=== PATIENT | female | born 1975 | race Caucasian/White ===

== ENCOUNTER → 2017-07-10 | Outpatient (CLI) | payer OTHER ==
[2017-07-10 14:16] LABS: ANION GAP 5 MEQ/L (8-16); BLOOD UREA NITROGEN 14 MG/DL (7-18); CALCIUM LEVEL 8.8 MG/DL (8.5-10.1); CARBON DIOXIDE LEVEL 28 MEQ/L (21-32); CHLORIDE LEVEL 107 MEQ/L (98-107); CHOLESTEROL LEVEL 196 MG/DL (<200); CREATININE FOR GFR 0.75 MG/DL (0.55-1.02); GLOMERULAR FILTRATION RATE > 60.0 (>58); GLUCOSE, FASTING 82 MG/DL (70-105); POTASSIUM SERUM 4.3 MEQ/L (3.5-5.1); SODIUM LEVEL 140 MEQ/L (136-145); TRIGLYCERIDES LEVEL 123 MG/DL (<150)
== END ==
LOC: M SMT 08:41
PROVIDERS: ATTEND Physician Assistant Medical
DX: I10 Essential (primary) hypertension (principal)

== ENCOUNTER → 2017-11-20 | Outpatient (REF) | payer OTHER ==
[2017-11-22 14:15] LABS: HPV HYBRID CAPTURE II Negative (Negative)
== END ==
LOC: M LAB REF 18:40
DX: Z01.419 Encounter for gynecological examination (general) (routine) without abnormal findings (principal); Z11.51 Encounter for screening for human papillomavirus (HPV)

== ENCOUNTER → 2017-12-05 | Outpatient (CLI) | payer OTHER | LOC: M RAD 08:52 | DX: Z12.31 Encounter for screening mammogram for malignant neoplasm of breast (principal) ==

== ENCOUNTER → 2018-06-25 | Outpatient (REF) | payer OTHER | LOC: M LAB REF 13:27 | DX: R30.0 Dysuria (principal) ==

== ENCOUNTER → 2018-07-25 | Outpatient (CLI) | payer OTHER ==
[2018-07-25 13:35] LABS: ANION GAP 8 MEQ/L (8-16); BLOOD UREA NITROGEN 13 MG/DL (7-18); CALCIUM LEVEL 8.9 MG/DL (8.5-10.1); CARBON DIOXIDE LEVEL 27 MEQ/L (21-32); CHLORIDE LEVEL 105 MEQ/L (98-107); CHOLESTEROL LEVEL 197 MG/DL (<200); CHOLESTEROL RISK RATIO 2.736 (<5); CREATININE FOR GFR 0.75 MG/DL (0.55-1.30); GLOMERULAR FILTRATION RATE > 60.0 (>58); GLUCOSE, FASTING 79 MG/DL (70-100); HDL CHOLESTEROL 72 MG/DL (>40); LDL CHOLESTEROL 96 MG/DL (<100); NON-HDL-C 125 MG/DL; POTASSIUM SERUM 4.4 MEQ/L (3.5-5.1); SODIUM LEVEL 140 MEQ/L (136-145); TRIGLYCERIDES LEVEL 143 MG/DL (<150)
== END ==
LOC: M SMT 10:03
DX: I10 Essential (primary) hypertension (principal)
CPT/HCPCS: 80061

== ENCOUNTER → 2018-11-25 | Outpatient (REF) | payer OTHER | LOC: M LAB REF 17:09 | PROVIDERS: ATTEND Specialist | DX: Z12.4 Encounter for screening for malignant neoplasm of cervix (principal) ==

== ENCOUNTER → 2018-12-23 | Outpatient (CLI) | payer OTHER ==
--- NOTE | 2018-12-23 16:36 | REPMRS ---
Patient History The patient states she had a clinical breast exam in November 2018. Family history of unknown cancer in mother, endometrial cancer in paternal aunt. Taking hormonal contraceptives for 22 years. 3D TOMOSYNTHESIS WAS PERFORMED. Digital Mammo Screening Bilat: December 23, 2018 - Exam #: [id number] Bilateral CC and MLO view(s) were taken. Technologist: Marylu Tenorio, Technologist Prior study comparison: December 05, 2017, bilateral digital mammo screening bilat performed at [facility]. FINDINGS: There are scattered fibroglandular densities. There has been no change in the appearance of the mammogram from the prior studies. There is a mild amount of residual fibroglandular tissue which is fairly symmetric. There is no interval development of dominant mass, architectural distortion, or clustered microcalcification suggestive of malignancy. Assessment: BI-RADS/ACR category 1 mammogram. Negative Mammogram. Recommendation Routine screening mammogram in 1 year (for women over age 40). This mammogram was interpreted with the aid of an FDA-approved computer-aided dectection system. Electronically Signed By: Mike Perez MD 12/23/18 7502
== END ==
LOC: M RAD 11:50
PROVIDERS: ATTEND Specialist
DX: Z12.31 Encounter for screening mammogram for malignant neoplasm of breast (principal); Z80.49 Family history of malignant neoplasm of other genital organs

== ENCOUNTER → 2019-03-13 | Outpatient (REF) | payer OTHER | LOC: M LAB REF 11:17 | PROVIDERS: ATTEND Physician Assistant | DX: N39.0 Urinary tract infection, site not specified (principal) ==

== ENCOUNTER → 2019-07-29 | Outpatient (CLI) | payer OTHER ==
[2019-07-29 13:16] LABS: BASO # 0.1 10^3/uL (0.0-0.2); BASO % 0.7 % (0.0-1.0); EOS # 0.2 10^3/uL (0.0-0.5); EOS % 2.3 % (0.0-3.0); HEMATOCRIT 45.2 % (36.0-47.0); HEMOGLOBIN 14.1 g/dl (12.0-15.5); LYMPH % 38.8 % (24.0-44.0); MEAN CORPUSCULAR HEMOGLOBIN 30.3 pg (27.0-33.0); MEAN CORPUSCULAR HGB CONC 31.2 g/dl (32.0-36.5); MEAN CORPUSCULAR VOLUME 97.2 fl (80.0-96.0); MONO # 0.6 10^3/uL (0.0-0.8); MONO % 7.2 % (0.0-5.0); NEUTROPHILS # 3.9 10^3/uL (1.5-8.5); NEUTROPHILS % 50.9 % (36.0-66.0); PLATELET COUNT, AUTOMATED 289 10^3/uL (150-450); RED BLOOD COUNT 4.65 10^6/uL (4.00-5.40); WHITE BLOOD COUNT 7.7 10^3/uL (4.0-10.0)
[2019-07-29 14:23] LABS: ALBUMIN 3.2 GM/DL (3.2-5.2); ALT/SGPT 28 U/L (12-78); BILIRUBIN,TOTAL 0.5 MG/DL (0.2-1.0); BLOOD UREA NITROGEN 12 MG/DL (7-18); CARBON DIOXIDE LEVEL 29 MEQ/L (21-32); CHLORIDE LEVEL 108 MEQ/L (98-107); CHOLESTEROL LEVEL 177 MG/DL (<200); CHOLESTEROL RISK RATIO 2.901 (<5); CREATININE FOR GFR 0.79 MG/DL (0.55-1.30); GLOMERULAR FILTRATION RATE > 60.0 (>58); GLUCOSE, FASTING 85 MG/DL (70-100); HDL CHOLESTEROL 61 MG/DL (>40); LDL CHOLESTEROL 84 MG/DL (<100); NON-HDL-C 116 MG/DL; POTASSIUM SERUM 4.5 MEQ/L (3.5-5.1); SODIUM LEVEL 141 MEQ/L (136-145); TOTAL 25(OH) VITAMIN D 37.8 NG/ML (30.0-100.0); TOTAL PROTEIN 6.6 GM/DL (6.4-8.2); TRIGLYCERIDES LEVEL 160 MG/DL (<150)
== END ==
LOC: M PLALAB 09:08
PROVIDERS: ATTEND Family Medicine
DX: Z00.00 Encounter for general adult medical examination without abnormal findings (principal); E55.9 Vitamin D deficiency, unspecified

== ENCOUNTER → 2020-01-13 | Outpatient (REF) | payer OTHER | LOC: M SFHCWAGY 17:07 | PROVIDERS: ATTEND Specialist | DX: Z01.419 Encounter for gynecological examination (general) (routine) without abnormal findings (principal); Z12.4 Encounter for screening for malignant neoplasm of cervix ==

== ENCOUNTER → 2020-01-15 | Outpatient (CLI) | payer OTHER ==
--- NOTE | 2020-01-15 08:31 | REPMRS ---
Patient History The patient states she had a clinical breast exam in December 2019. Patient is nulliparous. Family history of unknown cancer in mother, endometrial cancer in paternal aunt. Taking hormonal contraceptives for 22 years. Digital Woman Screen Mammo: January 15, 2020 - Exam #: [id number] Bilateral CC and MLO view(s) were taken. Technologist: Anel Gonzalez, Technologist Prior study comparison: December 23, 2018, bilateral digital mammo screening bilat, performed at [facility]. December 05, 2017, bilateral digital mammo screening bilat, performed at [facility]. FINDINGS: There are scattered fibroglandular densities. The Volpara volumetric breast density category is:B. There has been no change in the appearance of the mammogram from the prior studies. There is a mild amount of scattered fibroglandular density which is fairly symmetric. There is no interval development of dominant mass, architectural distortion, or grouped microcalcification suggestive of malignancy. 3-D tomosynthesis shows no additional findings. Assessment: BI-RADS/ACR category 1 mammogram. Negative Mammogram. Recommendation Routine screening mammogram of both breasts in 1 year (for women over age 40). This patient's Lifetime Breast Cancer Risk is estimated at 14.2 %. This mammogram was interpreted with the aid of an FDA-approved computer-aided dectection system. Electronically Signed By: Gil Conley MD 01/15/20 0831
== END ==
LOC: M WHC 07:51
PROVIDERS: ATTEND Specialist
DX: Z12.31 Encounter for screening mammogram for malignant neoplasm of breast (principal)

== ENCOUNTER → 2020-07-12 | Outpatient (CLI) | payer OTHER ==
[2020-07-12 17:51] LABS: BASO # 0.1 10^3/uL (0.0-0.2); BASO % 0.7 % (0.0-1.0); EOS # 0.2 10^3/uL (0.0-0.5); EOS % 1.8 % (0.0-3.0); HEMATOCRIT 41.6 % (36.0-47.0); HEMOGLOBIN 13.3 g/dl (12.0-15.5); LYMPH % 34.3 % (24.0-44.0); MEAN CORPUSCULAR VOLUME 93.7 fl (80.0-96.0); MONO # 0.6 10^3/uL (0.0-0.8); MONO % 5.6 % (0.0-5.0); NEUTROPHILS # 6.6 10^3/uL (1.5-8.5); NEUTROPHILS % 57.4 % (36.0-66.0); PLATELET COUNT, AUTOMATED 341 10^3/uL (150-450); RED BLOOD COUNT 4.44 10^6/uL (4.00-5.40); WHITE BLOOD COUNT 11.5 10^3/uL (4.0-10.0)
[2020-07-12 18:15] LABS: ALBUMIN 3.4 GM/DL (3.2-5.2); ALT/SGPT 30 U/L (12-78); BILIRUBIN,TOTAL 0.7 MG/DL (0.2-1.0); BLOOD UREA NITROGEN 16 MG/DL (7-18); CALCIUM LEVEL 9.7 MG/DL (8.5-10.1); CARBON DIOXIDE LEVEL 30 MEQ/L (21-32); CHLORIDE LEVEL 103 MEQ/L (98-107); CHOLESTEROL LEVEL 216 MG/DL (<200); CHOLESTEROL RISK RATIO 3.428 (<5); CREATININE FOR GFR 0.85 MG/DL (0.55-1.30); GLOMERULAR FILTRATION RATE > 60.0 (>58); GLUCOSE, FASTING 77 MG/DL (70-100); HDL CHOLESTEROL 63 MG/DL (>40); LDL CHOLESTEROL 114 MG/DL (<100); NON-HDL-C 153 MG/DL; POTASSIUM SERUM 4.4 MEQ/L (3.5-5.1); SODIUM LEVEL 138 MEQ/L (136-145); TOTAL PROTEIN 6.6 GM/DL (6.4-8.2); TRIGLYCERIDES LEVEL 197 MG/DL (<150)
== END ==
LOC: M PLALAB 15:37
PROVIDERS: ATTEND Family Medicine
DX: Z00.00 Encounter for general adult medical examination without abnormal findings (principal)

== ENCOUNTER → 2020-08-17 | Outpatient (CLI) | payer OTHER ==
--- NOTE | 2020-08-17 15:40 | REP ---
INDICATION: N94.6 DYSMENORRHEA COMPARISON: None. TECHNIQUE: Transabdominal pelvic ultrasound followed by transvaginal examination for better evaluation of the endometrium and adnexa with color Doppler evaluation of the ovaries. FINDINGS: Bladder is unremarkable and measures 11.3 x 9.8 x 6.1 cm. Normal anteverted uterus measures 8.3 x 3.4 x 4.3 cm. The endometrial complex measures 5.0 mm thickness. No discrete uterine or endometrial abnormalities are appreciated. Bilateral ovaries are normal in appearance and vascularity without evidence for torsion. Right ovary measures 3.0 x 1.7 x 2.4 cm and includes multiple follicles; R I = 0.46. Left ovary measures 2.1 x 1.2 x 1.8 cm and includes multiple follicles; R I = 0.50. No pelvic fluid or adnexal mass lesion IMPRESSION: Normal pelvic ultrasound. <Electronically signed by Reinaldo Harper > 08/17/20 [id number]
== END ==
LOC: M WHC 13:49
PROVIDERS: ATTEND Family Medicine
DX: N94.6 Dysmenorrhea, unspecified (principal)

== ENCOUNTER → 2020-08-23 | Outpatient (REF) | payer OTHER | LOC: M LAB REF 17:10 | PROVIDERS: ATTEND Family Medicine | DX: N39.0 Urinary tract infection, site not specified (principal) ==

== ENCOUNTER → 2020-09-20 | Outpatient (CLI) | payer OTHER ==
--- NOTE | 2020-09-20 07:46 | REP ---
INDICATION: M54.9 BACK PAIN,N20.0 NEPHROLITHIASIS COMPARISON: None TECHNIQUE: Real time duarte scale and color Doppler evaluation of the kidneys using curved array transducer. FINDINGS: Bilateral kidneys are normal in contour, size, echogenicity, reniform shape and vascularity. No hydronephrosis, nephrolithiasis, cystic or renal mass lesion. Right kidney measures 11.1 x 5.6 x 4.8 cm (RI 0.57). Left kidney measures 12.2 x 6.8 x 4.8 cm (RI 0.62). The bladder is unremarkable. IMPRESSION: 1. Normal renal ultrasound. <Electronically signed by Reinaldo Harper > 09/20/20 0742
== END ==
LOC: M WHC 06:37
PROVIDERS: ATTEND Specialist
DX: M54.9 Dorsalgia, unspecified (principal); N20.0 Calculus of kidney

== ENCOUNTER 2020-10-01 08:45 | Emergency (ER) | payer OTHER ==
[~2020-10-01] VITALS: Ht 170.2 cm; Wt 104.5 kg
--- OUTSIDE RECORDS SUMMARY | 2020-10-01 08:59 | CCD ---
Author Author [facility] Organization [facility] Address Unknown Phone Unavailable Care Team Providers Care Public Health Advisor Name Role Phone Phil Alejandro Unavailable PROBLEMS Type Condition ICD9-CM Code [id number] Code Onset Dates Condition S tatus SNOMED Code Notes Problem Nephrolithiasis N20.0 Active 23587784 ALLERGIES No Known Allergies ENCOUNTERS from 1975 to 2020-09-08 Encounter Location Date Provider Diagnosis [facility] [address] [place] [address] Aug, Phil Alejandro Back pain M54.9 and Nephrolithiasis N20.0 IMMUNIZATIONS No Information SOCIAL HISTORY Tobacco Use: Social History Observation Description Date Details (start date - stop date) Never Smoker Sex Assigned At : Social History Observation Description Sex Assigned At Unknown Alcohol Screening: Question Answer Notes Did you have a drink containing alcohol in the past year? Ye s Points 1 Interpretation Negative How often did you have six or more drinks on one occas ion in the past year? Never (0 points) How many drinks did you have on a typica l day when you were drinking in the past year? 1 or 2 (0 points) How often did you have a drink containing alcohol in t he past year? Monthly or less (1 point) Tobacco Use: Question Answer Notes Are you a: never smoker REASON FOR REFERRAL No Information VITAL SIGNS Weight 230 lbs Aug, Height 67 in Aug, BMI 36.02 kg/m2 Aug, Blood pressure systolic 142 mm Hg Aug, Blood pressure diastolic 82 mm Hg Aug, MEDICATIONS Medication SIG (Take, Route, Frequency, Duration) Notes Start Da te End Date Status Flonase Allergy Relief 50 MCG/ACT 1 spray in each nostril Nasall y Once a day Active TriNessa (28) 0.18/0.215/0.25 MG-35 MCG 1 tablet Orall y Once a day for 84 day(s) December, Not-Taking Lisinopril 10 MG 1 tablet Orally Once a day Active Claritin 10 MG 1 tablet Orally Once a day Active TriNessa (28) 0.18/0.215/0.25 MG-35 MCG 1 tablet Orall y Once a day for 90 day(s) Sep, Active PROCEDURES No Information RESULTS No Results REASON FOR VISIT LOWER BACK PAIN W/ PERIOD MEDICAL (GENERAL) HISTORY Type Description Date Medical History hypertension Surgical History none Hospitalization History none Goals Section No Information Health Concerns No Information MEDICAL EQUIPMENT No Information MENTAL STATUS No Information FUNCTIONAL STATUS No Information ASSESSMENTS Encounter Date Diagnosis Assessment Notes Treatment Notes Treatm ent Clinical Notes Aug, Back pain (ICD-10 - M54.9) Aug, Nephrolithiasis (ICD-10 - N20.0) PLAN OF TREATMENT Treatment Notes Test Name Order Date RENAL ULTRASOUND 2020-09-08 Insurance Providers Payer Name Payer Address Payer Phone Insured Name Patient Relati onship to Insured Coverage Start Date Coverage End Date [facility] [address] [address] [facility] [id number] KRISTIE WOODALL self
--- OUTSIDE RECORDS SUMMARY | 2020-10-01 08:59 | CCD ---
Author Organization Unknown Address [address] [place] [address] Phone [phone] Care Team Providers Care Insurance Licensing Supervisor Name Role Phone Raymond Herzog Unavailable Unavailable Allergies None recorded. Medications Name Status Start Date Stop Date amoxicillin 875 mg-potassium clavulanate 125 mg tablet Active Not available cyclobenzaprine 10 mg tablet TAKE 1/2 1 TABLET BY MOUTH THREE TIMES A DAY NEEDED Active Not available Fluarix Quad (PF) 60 mcg (15 mcg x 4)/0.5 mL IM syring e Active Not available fluconazole 150 mg tablet TAKE ONE TABLET BY MOUTH ONCE WEEKLY Active No t available fluticasone propionate 50 mcg/actuation nasal spray,suspension A ctive Not available lisinopril 10 mg tablet Active Not avai lable naproxen 500 mg tablet TAKE ONE TABLET BY MOUTH TWICE A DAY NEEDED Active Not available Tri-Linyah (28) 0.18 mg(7)/0.215 mg(7)/0.25 mg(7)-35 mcg tablet Active Not available Problems None recorded. Procedures None recorded. Results Lab Results Date Name Specimen Result Interpretation Description Value Range Status Address 09/09/2020 SARS CoV 2 RdRp Gene, QL Probe, Respiratory Spec imen Nasopharyngeal ABNORMAL Sars-cov-2 positive negative Final [facility]: [address] [place] [address] 08/26/2020 SARS CoV 2 RdRp Gene, QL Probe, Respirat ory Specimen Nose (nasal passage) Normal Sars-cov-2 negative negative Final [facility]: [address] [place] [address] Past Encounters 09/09/2020 Exposure to SARS-CoV-2 Raymond Herzog MD: [address] [place] [phone], Ph. 08/26/2020 Exposure to SARS-CoV-2 Raymond Herzog MD: [address] [place] [phone], Ph. Social History None recorded. Vaccine List None recorded. Plan of Care Reminders Provider Appointments None recorded. Lab None recorded. Referral None recorded. Procedures None recorded. Surgeries None recorded. Imaging None recorded. Vitals None recorded.
--- OUTSIDE RECORDS SUMMARY | 2020-10-01 09:00 | CCD | Continuity of Care Document ---
Author Author Vanessa BAILEY M.D. Organization Unknown Address [address] [place] [address] Phone [phone] Care Team Providers Care Instructor Of Nursing Name Role Phone [facility] Nurse Practitioners - Dermatology AUTM [phone] Problems Active Problems Provider Date Essential hypertension Lizabeth Boucher RPA-C Onset: 06/30 Social History Type Date Description Comments Sex Unknown Tobacco Use Start: Unknown End: Unknown denies cigarette use Tobacco Use Start: Unknown Never Used Smokeless Tobacco ETOH Use Occasionally consumes alcohol Tobacco Use Start: Unknown Patient has never smoked Recreational Drug Use Denies Drug Use Smoking Status Reviewed: 08/11/20 Patient has never smoked Exercise Type/Frequency Exercises sporadically Sun Exposure Uses sunscreen Seat Belt/Car Seat Always uses seat belt Smoke Alarms Yes Smoke Alarms Carbon Monoxide Detector: Yes Allergies, Adverse Reactions, Alerts Description No Known Drug Allergies Medications Active Medications SIG Qnty Indications Ordering Provide r Date Naproxen 500mg Tablets one by mouth twice a day as needed 60tabs M54.5 Jeannine Bailey M.D. 020 Cyclobenzaprine HCL 10mg Tablets 1/2 to 1 by mouth three times a day as needed 30tabs M54.5 Óscar Bailey M.D. 08/11/2020 Lisinopril 10mg Tablets 1 by mouth every day 90tabs I10 Jeannine Bailey M.D. 011 Trinessa 0.18/0.215/0.25 mg-3 Tabl ets 1 po qd Unknown Centrum Tablets 1 po qd otc Unknown Claritin-D 24 Hour 1 0-240mg Tablets ER 24HR 1 tab po qam prn otc Unknown Fluticasone Propionate 50mcg/Act Suspension use 2 sprays in each nostril once daily DamonunJeannine Angeles M.D. Mucinex 600mg Tablets ER 12HR prn Unknown Advil 200mg Tablets as needed Unknown Immunizations CPT Code Status Date Vaccine Lot # [id number] Given 07/29/2019 Boostrix (Tdap) Tetnus, Diphtheria Toxoids & Acellular Pertussis [id number] Given 12/26/2003 Tetnus & Dipther ia Toxoids Seven Years Or Older, Im Or Jet Inj Vital Signs Date Vital Result Comment 08/11/2020 10:27am BP Systolic 125 mmHg BP Diastolic 67 mmHg Heart Rate 68 /min Body Temperature 99.1 F Respiratory Rate 16 /min Height 67.75 inches 5'7.75" had winter s hoes on Weight 229.25 lb O2 % BldC Oximetry 100 % Peak Expiratory Flow Rate 389 Estimated Peak Flow Rate [place] Body Weight 135 lb BMI (Body Mass Index) 35.1 kg/m2 07/28/2020 7:38am BP Systolic 106 mmHg BP Diastolic 67 mmHg Heart Rate 85 /min Body Temperature 97.1 F Respiratory Rate 16 /min Height 67.75 inches 5'7.75" had winter s hoes on Weight 228.38 lb O2 % BldC Oximetry 98 % Peak Expiratory Flow Rate 389 Estimated Peak Flow Rate [place] Body Weight 135 lb BMI (Body Mass Index) 35.0 kg/m2 Results Test Acquired Date Facility Test Result H/L Range Note Laboratory test finding 08/23/2020 [facility] [phone] Urine Culture FULL REPORT IN L <SEE NOTE> Normal 1 Ua Routine 08/11/2020 [facility] [address] [place], [place] [address] [phone] Ua Specific [place] 1.015 Ua PH 6.5 Ua Color yellow Ua Appera clear Ua WBC neg Ua Protein trace Ua Glucose neg Ua Ketones neg Ua Bilirubin neg Ua Urobilinogen neg Ua Nitrite neg Ua Occult Blood 5-10+non hemo Complete Blood Count 07/12/2020 Patient Service Kimber[facility] RADIOLOGY [place], [place] [address] [phone] White Blood Count 11.5 10 High 4.0-10.0 Red Blood Count 4.44 10 Normal 4.00-5.40 Hemoglobin 13.3 g/dL Normal 12.0-15.5 Hematocrit 41.6 % Normal 36.0-47.0 Mean Corpuscular Volume 93.7 fl Normal 80.0-96.0 Mean Corpuscular Hemoglobin 30.0 pg Normal 27.0-33.0 Mean Corpuscular HGB Conc 32.0 g/dL Normal 32.0-36.5 Red Cell Distribution Width 12.5 % Normal 11.5-14.5 Platelet Count, Automated 341 10 Normal 150-450 Nucleated Red Blood Cell % 0.0 % Normal 0-0 Differential Automated 07/12/2020 Patient Service C [place], [place] [address] [phone] Neutrophils % 57.4 % Normal 36.0-66.0 Lymph % 34.3 % Normal 24.0-44.0 [place] % 5.6 % High 0.0-5.0 Eos % 1.8 % Normal 0.0-3.0 Baso % 0.7 % Normal 0.0-1.0 Immature Granulocyte % 0.2 % Normal 0-3.0 Neutrophils # 6.6 10 Normal 1.5-8.5 Lymph # 4.0 10 Normal 1.5-5.0 [place] # 0.6 10 Normal 0.0-0.8 Eos # 0.2 10 Normal 0.0-0.5 Baso # 0.1 10 Normal 0.0-0.2 Comprehensive Metabolic Profil 07/12/2020 Patient S [place], [place] [address] [phone] Glucose, Fasting 77 mg/dL Normal 70-100 Blood Urea Nitrogen 16 mg/dL Normal 7-18 Creatinine For GFR 0.85 mg/dL Normal 0.55-1.30 Glomerular Filtration Rate > 60.0 Normal >58 2 Sodium Level 138 mEq/L Normal 136-145 Potassium Serum 4.4 mEq/L Normal 3.5-5.1 Chloride Level 103 mEq/L Normal 98-107 Carbon Dioxide Level 30 mEq/L Normal 21-32 Anion Gap 5 mEq/L Low 8-16 Calcium Level 9.7 mg/dL Normal 8.5-10.1 Ast/Sgot 18 U/L Normal 7-37 Alt/SGPT 30 U/L Normal 12-78 Alkaline Phosphatase 51 U/L Normal 45-117 Bilirubin,Total 0.7 mg/dL Normal 0.2-1.0 Total Protein 6.6 GM/DL Normal 6.4-8.2 Albumin 3.4 GM/DL Normal 3.2-5.2 Albumin/Globulin Ratio 1.1 Low 1.2-2.2 Lipid Panel 07/12/2020 Patient Service [facility] [place] [id number] [phone] Triglycerides Level 197 mg/dL High <150 Cholesterol Level 216 mg/dL High <200 HDL Cholesterol 63 mg/dL Normal >40 LDL Cholesterol 114 mg/dL High <100 Non-HDL-C 153 mg/dL Normal Cholesterol Risk Ratio 3.428 Normal <5 1 FULL REPORT IN LAB NOTES (eC W and Medent). NO GROWTH 2 Units are mL/min/1.73 m2 Chronic Kidney Disease Staging per NKF: Stage I & II GFR >=60 Normal to Mildly Decreased Stage III GFR 30-59 Moderately Decreased Stage IV GFR 15-29 Severely Decreased Stage V GFR <15 Very Little GFR Left ESRD GFR <15 on [employer]Y CLEANING CHECKER Procedures Date Code Description Status 12/19/2019 [id number] Mammogram Completed Medical Devices Description No Information Available Encounters Type Date Location Provider Dx Diagnosis Office Visit 08/11/2020 10:15a Main Office Jeannine Bailey M.D. M 54.5 Low back pain N94.6 Dysmenorrhea, unspecified Office Visit 07/28/2020 7:30a Main Office Jeannine Bailey M.D. Z 00.00 Encntr for general adult medical exam w/o abnormal findings I10 Essential (primary) hyperten keaton Assessments Date Code Description Provider 08/11/2020 M54.5 Low back pain Jeannine Bailey M.D. 08/11/2020 N94.6 Dysmenorrhea, unspecified Willia Jeannine merchant M.D. 07/28/2020 Z00.00 Encounter for general adult medi regan examination without abno Jeannine Bailey M.D. 07/28/2020 I10 Essential (primary) hypertension Jeannine Bailey M.D. Plan of Treatment Future Appointment(s):* 08/02/2021 8:00 am - Jeannine Bailey M.D. at Main Office 08/11/2020 - Jeannine Bailey M.D.* M54.5 Low back pain* New Medication:* Naproxen 500 mg - one by mouth twice a day as needed * Cyclobenzaprine HCL 10 mg - 1/2 to 1 by mouth three times a day as needed * N94.6 Dysmenorrhea, unspecified Functional Status Functional Condition Comment Date Status Soft contacts Active Independent with all ADL's Activ e Glasses Active Independent with all IADL's Acti ve Mental Status Mental Condition Comment Date Status None Active Referrals Refer to Reason for Referral Status Appt Date [facility] Nurse Practitioners raised lesion on septum of nose Cl osed 08/09/[address] [facility] [address], [address] [place] [address] [phone]
--- OUTSIDE RECORDS SUMMARY | 2020-10-01 09:00 | CCD | Continuity of Care Document ---
Author Author Vanessa BAILEY M.D. Organization Unknown Address [address] [place] [address] Phone [phone] Care Team Providers Care Talent Buyer Name Role Phone [facility] Nurse Practitioners - Dermatology AUTM [phone] Problems Active Problems Provider Date Essential hypertension [...] CPT Code Status Date Vaccine Lot # [id number] Given 07/29/2019 Boostrix (Tdap) Tetnus, Diphtheria Toxoids & Acellular Pertussis [id number] Given 12/26/2003 Tetnus & Dipther ia Toxoids [...] Flow Rate 389 Estimated Peak Flow Rate [place] Body Weight 135 lb BMI (Body Mass Index) 35.1 kg/m2 07/28/2020 7:38am BP Systolic 106 mmHg BP Diastolic 67 mmHg Heart Rate 85 /min Body Temperature 97.1 F Respiratory Rate 16 /min Height 67.75 inches 5'7.75" had winter s hoes on Weight 228.38 lb O2 % BldC Oximetry 98 % Peak Expiratory Flow Rate 389 Estimated Peak Flow Rate [place] Body Weight 135 lb BMI (Body Mass Index) 35.0 kg/m2 Results Test Acquired Date Facility Test Result H/L Range Note Laboratory test finding 08/23/2020 [facility] [phone] Urine Culture FULL REPORT IN L <SEE NOTE> Normal 1 Ua Routine 08/11/2020 [facility] [address] [place], [place] [address] [phone] Ua Specific [place] 1.015 Ua PH 6.5 Ua Color yellow Ua Appera clear Ua WBC neg Ua Protein trace Ua Glucose neg Ua Ketones neg Ua Bilirubin neg Ua Urobilinogen neg Ua Nitrite neg Ua Occult Blood 5-10+non hemo Complete Blood Count 07/12/2020 Patient Service Kimberley [facility] RADIOLOGY [place], [place] [address] [phone] White Blood Count 11.5 10 High 4.0-10.0 [...] 0-0 Differential Automated 07/12/2020 Patient Service C [place], [place] [address] [phone] Neutrophils % 57.4 % Normal 36.0-66.0 Lymph % 34.3 % Normal 24.0-44.0 [place] % 5.6 % High 0.0-5.0 Eos % 1.8 % Normal 0.0-3.0 Baso % 0.7 % Normal 0.0-1.0 Immature Granulocyte % 0.2 % Normal 0-3.0 Neutrophils # 6.6 10 Normal 1.5-8.5 Lymph # 4.0 10 Normal 1.5-5.0 [place] # 0.6 10 Normal 0.0-0.8 Eos # 0.2 10 Normal 0.0-0.5 Baso # 0.1 10 Normal 0.0-0.2 Comprehensive Metabolic Profil 07/12/2020 Patient S [place], [place] [address] [phone] Glucose, Fasting 77 mg/dL Normal 70-100 Blood [...] Low 1.2-2.2 Lipid Panel 07/12/2020 Patient Service [facility] [place] [address] [phone] Triglycerides Level 197 mg/dL High <150 Cholesterol [...] Little GFR Left ESRD GFR <15 on S[employer]OOK Procedures Date Code Description Status 12/19/2019 [id number] Mammogram Completed Medical Devices Description No Information [...] to Reason for Referral Status Appt Date [facility] Nurse Practitioners raised lesion on septum of nose Cl osed 08/09/2020 [address] [facility] [address], [address] [place] [address] [phone]
--- OUTSIDE RECORDS SUMMARY | 2020-10-01 09:00 | CCD | Continuity of Care Document ---
Author Author Vanessa BAILEY M.D. Organization Unknown Address [address] [place] [address] Phone [phone] Care Team Providers Care Sports Specialist Name Role Phone [facility] Nurse Practitioners - Dermatology AUT [phone] Problems Active Problems Provider Date Essential hypertension [...] 2 sprays in each nostril once daily Jeannine Mcnair M.D. Mucinex 600mg Tablets ER 12HR prn Unknown Advil 200mg Tablets as needed Unknown Immunizations CPT Code Status Date Vaccine Lot # [id number] Given 07/29/2019 Boostrix (Tdap) Tetnus, Diphtheria Toxoids & Acellular Pertussis [id number] Given 12/26/2003 Tetnus & Dipther ia Toxoids [...] Flow Rate 389 Estimated Peak Flow Rate [place] Body Weight 135 lb BMI (Body Mass Index) 35.1 kg/m2 07/28/2020 7:38am BP Systolic 106 mmHg BP Diastolic 67 mmHg Heart Rate 85 /min Body Temperature 97.1 F Respiratory Rate 16 /min Height 67.75 inches 5'7.75" had winter s hoes on Weight 228.38 lb O2 % BldC Oximetry 98 % Peak Expiratory Flow Rate 389 Estimated Peak Flow Rate [place] Body Weight 135 lb BMI (Body Mass Index) 35.0 kg/m2 Results Test Acquired Date Facility Test Result H/L Range Note Laboratory test finding 08/11/2020 [facility] [phone] Urine Culture <pending> Ua Routine 08/11/2020 [facility] [address] [place], [place] [address] [phone] Ua Specific [place] 1.015 Ua PH 6.5 Ua Color yellow Ua Appera clear Ua WBC neg Ua Protein trace Ua Glucose neg Ua Ketones neg Ua Bilirubin neg Ua Urobilinogen neg Ua Nitrite neg Ua Occult Blood 5-10+non hemo Complete Blood Count 07/12/[address] [facility] RADIOLOGY [place], [place] [address] [phone] White Blood Count 11.5 10 High 4.0-10.0 [...] Normal 0-0 Differential Automated 07/12/2020 [place] [address] [phone] Neutrophils % 57.4 % Normal 36.0-66.0 Lymph % 34.3 % Normal 24.0-44.0 [place] % 5.6 % High 0.0-5.0 Eos % 1.8 % Normal 0.0-3.0 Baso % 0.7 % Normal 0.0-1.0 Immature Granulocyte % 0.2 % Normal 0-3.0 Neutrophils # 6.6 10 Normal 1.5-8.5 Lymph # 4.0 10 Normal 1.5-5.0 [place] # 0.6 10 Normal 0.0-0.8 Eos # 0.2 10 Normal 0.0-0.5 Baso # 0.1 10 Normal 0.0-0.2 Comprehensive Metabolic Profil 07/12/2020 [place] [address] [phone] Glucose, Fasting 77 mg/dL Normal 70-100 Blood Urea Nitrogen 16 mg/dL Normal 7-18 Creatinine For GFR 0.85 mg/dL Normal 0.55-1.30 Glomerular Filtration Rate > 60.0 Normal >58 1 Sodium Level 138 mEq/L Normal 136-145 Potassium [...] Low 1.2-2.2 Lipid Panel 07/12/2020 Patient Service [facility] RADIOLOGY [place] [address] [phone] Triglycerides Level 197 mg/dL High <150 Cholesterol Level 216 mg/dL High <200 HDL Cholesterol 63 mg/dL Normal >40 LDL Cholesterol 114 mg/dL High <100 Non-HDL-C 153 mg/dL Normal Cholesterol Risk Ratio 3.428 Normal <5 1 Units are mL/min/1.73 m2 Chronic Kidney Disease Staging per NKF: Stage I & II GFR >=60 Normal to Mildly Decreased Stage III GFR 30-59 Moderately Decreased Stage IV GFR 15-29 Severely Decreased Stage V GFR <15 Very Little GFR Left ESRD GFR <15 on GAS LINE 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
--- OUTSIDE RECORDS SUMMARY | 2020-10-01 09:00 | CCD ---
Continuity of Care Document (CCD) Created on: 08/11/2020 Vanessa Miles External Reference #: [id number] : [id number] Sex: Female Author Author Vanessa BAILEY M.D. Organization Unknown Address [address] [place] [address] Phone [phone] Care Team Providers Care Environmental Field Services Technician Name Role Phone [facility] Nurse Practitioners - Dermatology AUTM [phone] Problems Active Problems Provider Date Essential hypertension [...] SIG Qnty Indications Ordering Provide r Date Lisinopril 10mg Tablets 1 by mouth every day 90tabs I10 Jeannine Bailey M.D. 011 Trinessa 0.18/0.215/0.25 mg-3 Tabl ets 1 po qd Unknown Centrum Tablets 1 po qd otc Unknown Claritin-D 24 Hour 1 0-240mg Tablets ER 24HR 1 tab po qam prn otc Unknown Fluticasone Propionate 50mcg/Act Suspension use 2 sprays in each nostril once daily 32units W Jeannine gilbert M.D. Mucinex 600mg Tablets ER 12HR prn Unknown Advil 200mg Tablets as needed Unknown Immunizations CPT Code Status Date Vaccine Lot # [id number] Given 07/29/2019 Boostrix (Tdap) Tetnus, Diphtheria Toxoids & Acellular Pertussis [id number] Given 12/26/2003 Tetnus & Dipther ia Toxoids [...] Flow Rate 389 Estimated Peak Flow Rate [place] Body Weight 135 lb BMI (Body Mass Index) 35.1 kg/m2 07/28/2020 7:38am BP Systolic 106 mmHg BP Diastolic 67 mmHg Heart Rate 85 /min Body Temperature 97.1 F Respiratory Rate 16 /min Height 67.75 inches 5'7.75" had winter s hoes on Weight 228.38 lb O2 % BldC Oximetry 98 % Peak Expiratory Flow Rate 389 Estimated Peak Flow Rate [place] Body Weight 135 lb BMI (Body Mass Index) 35.0 kg/m2 Results Test Acquired Date Facility Test Result H/L Range Note Ua Routine 08/11/2020 [facility] [address] [place] [address] [phone] Ua Specific [place] 1.015 Ua PH 6.5 Ua Color yellow Ua Appera clear Ua WBC neg Ua Protein trace Ua Glucose neg Ua Ketones neg Ua Bilirubin neg Ua Urobilinogen neg Ua Nitrite neg Ua Occult Blood 5-10+non hemo Complete Blood Count 07/12/2020 Patient Service [facility] [place] [address] [phone] White Blood Count 11.5 10 High 4.0-10.0 [...] 0-0 Differential Automated 07/12/2020 [place] [address] [phone] Neutrophils % 57.4 % Normal 36.0-66.0 Lymph % 34.3 % Normal 24.0-44.0 [place] % 5.6 % High 0.0-5.0 Eos % 1.8 % Normal 0.0-3.0 Baso % 0.7 % Normal 0.0-1.0 Immature Granulocyte % 0.2 % Normal 0-3.0 Neutrophils # 6.6 10 Normal 1.5-8.5 Lymph # 4.0 10 Normal 1.5-5.0 [place] # 0.6 10 Normal 0.0-0.8 Eos # 0.2 10 Normal 0.0-0.5 Baso # 0.1 10 Normal 0.0-0.2 Comprehensive Metabolic Profil 07/12/[address] [place], [place] [id number] [phone] Glucose, Fasting 77 mg/dL Normal 70-100 Blood [...] Low 1.2-2.2 Lipid Panel 07/12/2020 Patient [place] [address] [phone] Triglycerides Level 197 mg/dL High <150 Cholesterol [...] Little GFR Left ESRD GFR <15 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 Z 00.00 Encntr for general adult medical exam w/o abnormal findings I10 Essential (primary) hyperten keaton Assessments Date Code Description Provider 08/11/2020 M54.5 Low back pain Jeannien Bailey M.D. 07/28/2020 Z00.00 Encounter for general adult medi regan examination without abno Jeannine Bailey M.D. 07/28/2020 I10 Essential (primary) hypertension Jeannine Bailey M.D. Plan of Treatment Future Appointment(s):* 08/02/2021 8:00 am - Jeannine Bailey M.D. at Main Office 08/11/2020 - Jeannine Bailey M.D.* M54.5 Low back pain Functional Status Functional Condition Comment Date Status Soft contacts Active Independent with all ADL's Activ e Glasses Active Independent with all IADL's Acti ve Mental Status Mental Condition Comment Date Status None Active Referrals Refer to Dr Reason for Referral Status Appt Date [facility] Nurse Practitioners raised lesion on septum of nose Sc heduled 08/09/2020 [address] [facility] [address], [address] [place] [address] [phone]
--- OUTSIDE RECORDS SUMMARY | 2020-10-01 09:00 | CCD ---
Author Organization Unknown Address [address] [place] [address] Phone [phone] Care Team Providers Care Roll Dough Divider Name Role Phone Raymond Herzog Unavailable Unavailable [...] available fluticasone propionate 50 mcg/actuation nasal spray,suspension INSTILL 2 SPRAYS IN EACH NOSTRIL ONCE DAILY Active Not available lisinopril 10 mg tablet TAKE ONE TABLET BY MOUTH EVERY DAY Active Not available naproxen 500 mg tablet TAKE ONE TABLET BY MOUTH TWICE A DAY NEEDED Active Not available Tri-Linyah (28) 0.18 mg(7)/0.215 mg(7)/0.25 mg(7)-35 mcg tablet Active Not available Problems None recorded. Procedures None recorded. Results Lab Results None recorded. Past Encounters 08/26/2020 Exposure to SARS-CoV-2 Raymond Herzog MD: [address] [place] [address], Ph. Social History None recorded. Vaccine List None recorded. Plan of Care Reminders Provider Appointments None recorded. Lab None recorded. Referral None recorded. Procedures None recorded. Surgeries None recorded. Imaging None recorded. Vitals None recorded.
--- OUTSIDE RECORDS SUMMARY | 2020-10-01 09:00 | CCD | Continuity of Care Document ---
Author Author Vanessa BAILEY M.D. Organization Unknown Address [address] [place] [address] Phone [phone] Care Team Providers Care Dust Handler Name Role Phone [facility] Nurse Practitioners - Dermatology AUTM [phone] Problems Active Problems Provider Date Essential hypertension Lizabeth Boucher RPA-C Onset: 06/30 Social History Type Date Description Comments Sex Unknown Tobacco Use Start: Unknown End: Unknown denies cigarette use Tobacco Use Start: Unknown Never Used Smokeless Tobacco ETOH Use Occasionally consumes alcohol Tobacco Use Start: Unknown Patient has never smoked Recreational Drug Use Denies Drug Use Smoking Status Reviewed: 07/28/20 Patient has never smoked Exercise Type/Frequency Exercises [...] CPT Code Status Date Vaccine Lot # [id number] Given 07/29/2019 Boostrix (Tdap) Tetnus, Diphtheria Toxoids & Acellular Pertussis [id number] Given 12/26/2003 Tetnus & Dipther ia Toxoids Seven Years Or Older, Im Or Jet Inj Vital Signs Date Vital Result Comment 07/28/2020 7:38am BP Systolic 106 mmHg BP Diastolic 67 mmHg Heart Rate 85 /min Body Temperature 97.1 F Respiratory Rate 16 /min Height 67.75 inches 5'7.75" had winter hoes on Weight 228.38 lb O2 % BldC Oximetry 98 % Peak Expiratory Flow Rate 389 Estimated Peak Flow Rate [place] Body Weight 135 lb BMI (Body Mass Index) 35.0 kg/m2 07/29/2019 8:21am BP Systolic 126 mmHg BP Diastolic 69 mmHg Heart Rate 72 /min Body Temperature 99.0 F Respiratory Rate 14 /min Height 67 inches 5'7" Weight 220.12 lb O2 % BldC Oximetry 98 % Peak Expiratory Flow Rate 390 Estimated Peak Flow Rate Last Menstrual Period 1303358 [place] Body Weight 135 lb BMI (Body Mass Index) 34.5 kg/m2 Results Test Acquired Date Facility Test Result H/L Range Note Complete Blood Count 07/12/[address] [place] [address] [phone] White Blood Count 11.5 10 High 4.0-10.0 [...] 0-0 Differential Automated 07/12/2020 [place] [address] [phone] Neutrophils % 57.4 % Normal 36.0-66.0 Lymph % 34.3 % Normal 24.0-44.0 [place] % 5.6 % High 0.0-5.0 Eos % 1.8 % Normal 0.0-3.0 Baso % 0.7 % Normal 0.0-1.0 Immature Granulocyte % 0.2 % Normal 0-3.0 Neutrophils # 6.6 10 Normal 1.5-8.5 Lymph # 4.0 10 Normal 1.5-5.0 [place] # 0.6 10 Normal 0.0-0.8 Eos # 0.2 10 Normal 0.0-0.5 Baso # 0.1 10 Normal 0.0-0.2 Comprehensive Metabolic Profil 07/12/[address] [place] [address] [phone] Glucose, Fasting 77 mg/dL Normal 70-100 Blood [...] Low 1.2-2.2 Lipid Panel 07/12/2020 [place] [address] [phone] Triglycerides Level 197 mg/dL High <150 Cholesterol [...] Little GFR Left ESRD 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 Z 00.00 Encntr for general adult medical exam w/o abnormal findings I10 Essential (primary) hyperten keaton Assessments Date Code Description Provider 07/28/2020 Z00.00 Encounter for general adult medi regan examination without abno Jeannine Bailey M.D. 07/28/2020 I10 Essential (primary) hypertension Jeannine Bailey M.D. Plan of Treatment Future Appointment(s):* 08/02/2021 8:00 am - Jeannine Bailey M.D. at Main Office 07/28/2020 - Jeannine Bailey M.D.* Z00.00 Encounter for general adult medical examination without abno* Follow up:* annually * I10 Essential (primary) hypertension * All * Referral:* [facility] Nurse Practitioners, Dermatology Goals 07/28/2020 - Jenanine Bailey M.D.* I10 Essential (primary) hypertension* Stay active and continue meds to maintain good blood pressure readings. Functional Status Functional Condition Comment Date Status Soft contacts Active Independent with all ADL's Activ e Glasses Active Independent with all IADL's Acti ve Mental Status Mental Condition Comment Date Status None Active Referrals Refer to Reason for Referral Status Appt Date [facility] Nurse Practitioners raised [place] [address] [facility] [address], [address] [place] [address] [phone]
--- OUTSIDE RECORDS SUMMARY | 2020-10-01 09:01 | CCD | Continuity of Care Document ---
Author Author Vanessa BAILEY M.D. Organization Unknown Address [address] [place] [address] Phone [phone] Problems Active Problems Provider Date Essential hypertension Lizabeth Boucher RPA-C Onset: 06/30 Social History Type Date Description Comments Sex Unknown Tobacco Use Start: Unknown End: Unknown denies cigarette use Tobacco Use Start: Unknown Never Used Smokeless Tobacco ETOH Use Occasionally consumes alcohol Tobacco Use Start: Unknown Patient has never smoked Recreational Drug Use Denies Drug Use Smoking Status Reviewed: 07/29/19 Patient has never smoked Exercise Type/Frequency Exercises [...] Mucinex 600mg Tablets ER 12HR prn Unknown Immunizations CPT Code Status Date Vaccine Lot # [id number] Given 07/29/2019 Boostrix (Tdap) Tetnus, Diphtheria Toxoids & Acellular Pertussis [id number] Given 12/26/2003 Tetnus & Dipther ia Toxoids Seven Years Or Older, Im Or Jet Inj Vital Signs Date Vital Result Comment 07/29/2019 8:21am BP Systolic 126 mmHg BP Diastolic 69 mmHg Heart Rate 72 /min Body Temperature 99.0 F Respiratory Rate 14 /min Height 67 inches 5'7" Weight 220.12 lb O2 % BldC Oximetry 98 % Peak Expiratory Flow Rate 390 Estimated Peak Flow Rate Last Menstrual Period 6652497 [place] Body Weight 135 lb BMI (Body Mass Index) 34.5 kg/m2 07/25/2018 8:11am BP Systolic 116 mmHg BP Diastolic 75 mmHg Heart Rate 72 /min Body Temperature 98.5 F Respiratory Rate 14 /min Height 66.0 inches 5'6" Weight 216.25 lb O2 % BldC Oximetry 97 % Peak Expiratory Flow Rate 385 Estimated Peak Flow Rate Last Menstrual Period 7504556 [place] Body Weight 130 lb BMI (Body Mass Index) 34.9 kg/m2 Results Test Acquired Date Facility Test Result H/L Range Note Complete Blood Count 07/12/[address] [place], [place] [address] [phone] White Blood Count 11.5 10 High 4.0-10.0 [...] Differential Automated 07/12/2020 [address] [facility] RAD[facility] [place], [place] [address] [phone] Neutrophils % 57.4 % Normal 36.0-66.0 Lymph % 34.3 % Normal 24.0-44.0 [place] % 5.6 % High 0.0-5.0 Eos % 1.8 % Normal 0.0-3.0 Baso % 0.7 % Normal 0.0-1.0 Immature Granulocyte % 0.2 % Normal 0-3.0 Neutrophils # 6.6 10 Normal 1.5-8.5 Lymph # 4.0 10 Normal 1.5-5.0 [place] # 0.6 10 Normal 0.0-0.8 Eos # 0.2 10 Normal 0.0-0.5 Baso # 0.1 10 Normal 0.0-0.2 Comprehensive Metabolic Profil 07/12/[address] Patient [address] [place], [place] [address] [phone] Glucose, Fasting 77 mg/dL Normal 70-100 Blood [...] Low 1.2-2.2 Lipid Panel 07/12/2020 Patient Service [place], [place] [address] [phone] Triglycerides Level 197 mg/dL High <150 Cholesterol [...] Little GFR Left ESRD GFR <15 on 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 at Main Office 07/29/2019 - Jeannine Bailey M.D.* I10 Essential (primary) hypertension * Z00.00 Encounter for general adult medical examination without abno * Z23 Encounter for immunization Goals 07/29/2019 - Jeannine Bailey M.D.* I10 Essential (primary) hypertension* Stay active and continue meds to maintain good blood pressure readings. * Z00.00 Encounter for general adult medical examination without abno* BMI is elevated. Work on improving diet, portion control and aim for 30 minutes of moderate intensity exercise at least 5 days a week. Functional Status Functional Condition Comment Date Status Soft contacts Active Independent with all ADL's Activ e Glasses Active Independent with all IADL's Acti ve Mental Status Mental Condition Comment Date Status None Active Referrals Description No Information Available
--- OUTSIDE RECORDS SUMMARY | 2020-10-01 09:01 | CCD | Continuity of Care Document ---
Author Author Vanessa BAILEY M.D. Organization Unknown Address [address] [place] [address] Phone [phone] Problems Active Problems Provider Date Essential hypertension [...] CPT Code Status Date Vaccine Lot # [id number] Given 07/29/2019 Boostrix (Tdap) Tetnus, Diphtheria Toxoids & Acellular Pertussis [id number] Given 12/26/2003 Tetnus & Dipther ia Toxoids [...] Estimated Peak Flow Rate Last Menstrual Period 9361432 [place] Body Weight 135 lb BMI (Body Mass Index) 34.5 kg/m2 Results Test Acquired Date Facility Test Result H/L Range Note Complete Blood Count 07/12/[address] [facility] [place] [address] [phone] White Blood Count 11.5 10 High 4.0-10.0 [...] Differential Automated 07/12/2020 Patient Service C enter [facility] [place] [address] [phone] Neutrophils % 57.4 % Normal 36.0-66.0 Lymph % 34.3 % Normal 24.0-44.0 [place] % 5.6 % High 0.0-5.0 Eos % 1.8 % Normal 0.0-3.0 Baso % 0.7 % Normal 0.0-1.0 Immature Granulocyte % 0.2 % Normal 0-3.0 Neutrophils # 6.6 10 Normal 1.5-8.5 Lymph # 4.0 10 Normal 1.5-5.0 [place] # 0.6 10 Normal 0.0-0.8 Eos # 0.2 10 Normal 0.0-0.5 Baso # 0.1 10 Normal 0.0-0.2 Comprehensive Metabolic Profil 07/12/[address] [place] [address] [phone] Glucose, Fasting 77 mg/dL Normal 70-100 Blood [...] Low 1.2-2.2 Lipid Panel 07/12/2020 [place] [address] [phone] Triglycerides Level 197 mg/dL High <150 Cholesterol [...] Little GFR Left ESRD GFR <15 on UI SOFTWARE 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 07/28/2020 I10 Essential (primary) hypertension Jeannine Bailey M.D. Plan of Treatment 07/28/2020 - Jeannine Bailey M.D.* Z00.00 Encounter for general adult medical examination without abno* Follow up:* annually * I10 Essential (primary) hypertension Functional Status Functional Condition Comment Date Status Soft contacts Active Independent with all ADL's Activ e Glasses Active Independent with all IADL's Acti ve Mental Status Mental Condition Comment Date Status None Active Referrals Description No Information Available
--- OUTSIDE RECORDS SUMMARY | 2020-10-01 09:01 | CCD ---
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 Name Role Phone Elie Rae MD Unavailable Unavailable Butch, Elie Paez MD Unavailable Unavailable Butch, Elie Paez MD Unavailable Unavailable Butch, Elie Paez MD Unavailable Unavailable Elie Rae MD Unavailable Unavailable Elie Rae MD Unavailable Unavailable Elie Rae MD Unavailable Unavailable Elie Rae MD Unavailable Unavailable Elie Rae MD Unavailable Unavailable Elie Rae MD Unavailable Unavailable Elie Rae MD Unavailable Unavailable Elie Rae MD Unavailable Unavailable Elie Rae MD Unavailable Unavailable Elie Rae MD Unavailable Unavailable Elie Rae MD Unavailable Unavailable Elie Rae MD Unavailable Unavailable Elie Rae MD Unavailable Unavailable Elie Rae MD Unavailable Unavailable Elie Rae MD Unavailable Unavailable Elie Rae MD Unavailable Unavailable Elie Rae MD Unavailable Unavailable Elie Rae MD Unavailable Unavailable Elie Rae MD Unavailable Unavailable Elie Rae MD Unavailable Unavailable Elie Rae MD Unavailable Unavailable Elie Rae MD Unavailable Unavailable Butch, Elie Paez MD Unavailable Unavailable Elie Rae MD Unavailable Unavailable Elie Rae MD Unavailable Unavailable Butch, Elie Paez MD Unavailable Unavailable Butch, Elie Paez MD Unavailable Unavailable Butch, Elie Paez MD Unavailable Unavailable Butch, Elie Paez MD Unavailable Unavailable Butch, Elie Paez MD Unavailable Unavailable Butch, Elie Paez MD Unavailable Unavailable Butch, Elie Paez MD Unavailable Unavailable Butch, Elie Paez MD Unavailable Unavailable Butch, Elie Peaz MD Unavailable Unavailable Butch, Elie Paez MD Unavailable Unavailable Butch, Elie Paez MD Unavailable Unavailable Butch, Elie Paez MD Unavailable Unavailable Butch, Elie Paez MD Unavailable Unavailable Butch, Elie Paez MD Unavailable Unavailable Butch, Elie Paez MD Unavailable Unavailable Butch, Elie Paez MD Unavailable Unavailable Butch, Elie Paez MD Unavailable Unavailable Butch, Elie Paez MD Unavailable Unavailable Butch, Elie Paez MD Unavailable Unavailable Butch, Elie Paez MD Unavailable Unavailable Butch, Elie Paez MD Unavailable Unavailable Butch, Elie Paez MD Unavailable Unavailable Butch, Elie Paez MD Unavailable Unavailable Butch, Elie Paez MD Unavailable Unavailable Butch, Elie Paez MD Unavailable Unavailable Butch, Elie Paez MD Unavailable Unavailable Butch, Elie Paez MD Unavailable Unavailable Butch, Elie Paez MD Unavailable Unavailable Butch, Elie Paez MD Unavailable Unavailable Butch, Elie Paez MD Unavailable Unavailable Butch, Elie Paez MD Unavailable Unavailable Butch, Elie Paez MD Unavailable Unavailable Butch, Elie Paez MD Unavailable Unavailable Butch, Elie Paez MD Unavailable Unavailable Butch, Elie Paez MD Unavailable Unavailable Butch, Elie Paez MD Unavailable Unavailable Butch, Elie Paez MD Unavailable Unavailable Butch, Elie Paez MD Unavailable Unavailable Butch, Elie Paez MD Unavailable Unavailable Butch, Elie Paez MD Unavailable Unavailable Butch, Elie Paez MD Unavailable Unavailable Butch, Elie Paez MD Unavailable Unavailable Butch, Elie Paez MD Unavailable Unavailable Butch, Elie Paez MD Unavailable Unavailable Butch, Elie Paez MD Unavailable Unavailable Butch, Elie Paez MD Unavailable Unavailable Jose Herzog MD Unavailable Unavailable Jose Herzog MD Unavailable Unavailable Jose Herzog MD Unavailable Unavailable Jose Herzog MD Unavailable Unavailable Jose Herzog MD Unavailable Unavailable Jose Herzog MD Unavailable Unavailable Jose Herzog MD Unavailable Unavailable Jose Herzog MD Unavailable Unavailable Jose Herzog MD Unavailable Unavailable Jose Herzog MD Unavailable Unavailable Jose Herzog MD Unavailable Unavailable Jose Herzog MD Unavailable Unavailable Jose Herzog MD Unavailable Unavailable Jose Herzog MD Unavailable Unavailable Jose Herzog MD Unavailable Unavailable Jose Herzog MD Unavailable Unavailable Jose Herzog MD Unavailable Unavailable Jose Herzog MD Unavailable Unavailable Jose Herzog MD Unavailable Unavailable Jose Herzog MD Unavailable Unavailable Jose Herzog MD Unavailable Unavailable Jose Herzog MD Unavailable Unavailable Jose Herzog MD Unavailable Unavailable Jose Herzog MD Unavailable Unavailable oJse Herzog MD Unavailable Unavailable Jose Herzog MD Unavailable Unavailable Jose Herzog MD Unavailable Unavailable Jose Herzog MD Unavailable Unavailable Jose Herzog MD Unavailable Unavailable Jose Herzog MD Unavailable Unavailable Jose Herzog MD Unavailable Unavailable Jose Herzog MD Unavailable Unavailable Jose Herzog MD Unavailable Unavailable Jose Herzog MD Unavailable Unavailable Jose Herzog MD Unavailable Unavailable Jose Herzog MD Unavailable Unavailable Jose Herzog MD Unavailable Unavailable Jose Hrezog MD Unavailable Unavailable Jose Herzog MD Unavailable Unavailable Jose Herzog MD Unavailable Unavailable Jose Herzog MD Unavailable Unavailable Jose Herzog MD Unavailable Unavailable Jose Herzog MD Unavailable Unavailable Jose Herzog MD Unavailable Unavailable Jose Herzgo MD Unavailable Unavailable Jose Herzog MD Unavailable Unavailable Jose Herzog MD Unavailable Unavailable Jose Herzog MD Unavailable Unavailable Jose Herzog MD Unavailable Unavailable Jose Herzog MD Unavailable Unavailable Jose Herzog MD Unavailable Unavailable Jose Herzog MD Unavailable Unavailable Jose Herzog MD Unavailable Unavailable Jose Herzog MD Unavailable Unavailable Jose Herzog MD Unavailable Unavailable Jose Herzog MD Unavailable Unavailable Jose Herzog MD Unavailable Unavailable Jose Herzog MD Unavailable Unavailable Jose Herzog MD Unavailable Unavailable Jose Herzog MD Unavailable Unavailable Jose Herzog MD Unavailable Unavailable Jose Herzog MD Unavailable Unavailable Jose Herzog MD Unavailable Unavailable Jose Herzog MD Unavailable Unavailable Jose Herzog MD Unavailable Unavailable Jose Herzog MD Unavailable Unavailable Jose Herzog MD Unavailable Unavailable Jose Herzog MD Unavailable Unavailable Jose Herzog MD Unavailable Unavailable Jose Herzog MD Unavailable Unavailable Jose Herzog MD Unavailable Unavailable Jose Herzog MD Unavailable Unavailable Jose Herzog MD Unavailable Unavailable Jose Herzog MD Unavailable Unavailable Jose Herzog MD Unavailable Unavailable Jose Herzog MD Unavailable Unavailable Jose Herzog MD Unavailable Unavailable Jose Herzog MD Unavailable Unavailable Jose Herzog MD Unavailable Unavailable Jose Herzog MD Unavailable Unavailable Jose Herzog MD Unavailable Unavailable Jose Herzog MD Unavailable Unavailable Jose Herzog MD Unavailable Unavailable Jose Herzog MD Unavailable Unavailable Jose Herzog MD Unavailable Unavailable Jose Herzog MD Unavailable Unavailable Jose Herzog MD Unavailable Unavailable Jose Herzog MD Unavailable Unavailable Jose Herzog MD Unavailable Unavailable Re-disclosure Warning The records that you are about to access may contain information from federally-assisted alcohol or drug abuse programs. If such information is present, then the following federally mandated warning applies: This information has been disclosed to you from records protected by federal confidentiality rules (42 CFR part 2). The federal rules prohibit you from making any further disclosure of this information unless further disclosure is expressly permitted by the written consent of the person to whom it pertains or as otherwise permitted by 42 CFR part 2. A general authorization for the release of medical or other information is NOT sufficient for this purpose. The Federal rules restrict any use of the information to criminally investigate or prosecute any alcohol or drug abuse patient.The records that you are about to access may contain highly sensitive health information, the redisclosure of which is protected by Article 27-F of the [facility] Public Health law. If you continue you may have access to information: Regarding HIV / AIDS; Provided by facilities licensed or operated by the [facility] Office of Mental Health; or Provided by the [facility] Office for People With Developmental Disabilities. If such information is present, then the following [facility] mandated warning applies: This information has been disclosed to you from confidential records which are protected by state law. State law prohibits you from making any further disclosure of this information without the specific written consent of the person to whom it pertains, or as otherwise permitted by law. Any unauthorized further disclosure in violation of state law may result in a fine or nursing home sentence or both. A general authorization for the release of medical or other information is NOT sufficient authorization for further disc losure. Allergies and Adverse Reactions Type Description Substance Reaction Status Data Source(s ) Allergy to substance Allergy to substance Allergy to substance [place] ([facility]) Allergy to substance Allergy to substance Allergy to substance [place] ([facility]) Family History Family Member Name Family Member Gender Family Member Status Date o f Status Description Data Source(s) Unknown Unknown Problem [facility] ([facility]) Unknown Unknown Problem [facility] ([facility] mother Unknown Unknown Unknown Unknown Problem [facility] ([facility] Unknown Unknown Problem [facility] ([facility] Encounters Encounter Providers Location Date Indications Data Source(s ) Raymond Herzog MD: [address] [place] [address], Ph. Attender: Raymond Herzog MD [facility] 09/09/2020 12:00:00 AM EST [place] ([facility]) Office Visit, Est Pt., Level 4 PC [address] [place] [address] 09/01/2020 12:00:00 AM EST eCW1 ([facility]) Raymond Herzog MD: [address] [place] [address], Ph. Attender: Raymond Herzog MD [facility] 08/26/2020 12:00:00 AM EST [place] ([facility]) Raymond Herzog MD: [address] [place] [phone], Ph. Attender: Raymond Herzog MD [facility] 08/26/2020 12:00:00 AM EST [place] ([facility]) Outpatient Attender: Jeannine Rae MD Main Office 08/11/2020 09:15:0 0 AM EST MED[facility] ([facility] Outpatient Attender: Jeannine Rae MD Main Office 07/28/2020 06:30:0 0 AM EST MED[facility] ([facility] Outpatient [address] [place] [phone] 01/13/2020 12:00:00 AM EDT eCW1 ([facility]) Immunizations Vaccine Date Status Description Data Source(s) INFLUENZA VIRUS VACCINE QUADRIVAL [id number](6 MOS AND UP)/PF 05/29/2020 12:00:00 AM EDT [facility] Medications Medication Brand Name Start Date Product Form Dose Route Admi nistrative Instructions Pharmacy Instructions Status Indications Reaction Description Data Source(s) 10 mg 08/31/2020 12:00:00 AM EST tablet 90 TAKE ONE TABLET BY MOUTH EVERY DAY TAKE ONE TABLET BY MOUTH EVERY DAY SOLD: 08/31/2020 [facility] 50 mcg/actuation 08/31/2020 12:00:00 AM EST spray,suspension 32 SPRAY 2 SPRAYS IN EACH NOSTRIL ONCE DAILY SPRAY 2 SPRAYS IN EACH NOSTRIL ONCE DAILY SOLD: 08/31/2020 [facility] 500 mg 08/11/2020 12:00:00 AM EST tablet 60 TAKE ONE TABLET BY MOUTH TWICE A DAY NEEDED TAKE ONE TABLET BY MOUTH TWICE A DAY NEEDED SOLD: 08/11/2020 [facility] Naproxen 500 MG Oral Tablet Naproxen 08/11/2020 12:00:00 AM EST ORAL active [facility] ([facility] Cyclobenzaprine hydrochloride 10 MG Oral Tablet Cyclobenzapr ine HCL 08/11/2020 12:00:00 AM EST ORAL active M [facility] ([facility] Cyclobenzaprine hydrochloride 10 MG Oral Tablet CYCLOBENZAPR INE HCL 08/11/2020 12:00:00 AM EST tablet 30 TAKE 1/2 - 1 TAB LET BY MOUTH THREE TIMES A DAY NEEDED TAKE 1/2 - 1 TABLET BY MOUTH THREE TIMES A DAY NEED ED SOLD: 08/11/2020 [facility] . UNIT 05/29/2020 12:00:00 AM EDT Injectable 1 DIRECTED DIRECTED SOLD: 05/29/2020 [facility] 0.18/0.215/0.25 mg-35 mcg (28) 03/01/2020 12:00:00 AM EDT ta blet 84 TAKE ONE TABLET BY MOUTH EVERY DAY TAKE ONE TABLET BY MOUTH EVERY DAY SOLD: 06/01/2020 [facility] 0.18/0.215/0.25 mg-35 mcg (28) 03/01/2020 12:00:00 AM EDT ta blet 84 TAKE ONE TABLET BY MOUTH EVERY DAY TAKE ONE TABLET BY MOUTH EVERY DAY SOLD: 08/31/2020 [facility] 0.18/0.215/0.25 mg-35 mcg (28) 03/01/2020 12:00:00 AM EDT ta blet 84 TAKE ONE TABLET BY MOUTH EVERY DAY TAKE ONE TABLET BY MOUTH EVERY DAY SOLD: 03/03/2020 [facility] TriNessa (28) 0.18/0.215/0.25 MG-35 MCG UNK 01/13/2020 12: 00:00 AM EDT 1.0 {tablet} suspended TriNessa (28) 0.18/0. 215/0.25 MG-35 MCG eCW1 ([facility]) TriNessa (28) 0.18/0.215/0.25 MG-35 MCG UNK 01/13/2020 12: 00:00 AM EDT 1.0 {tablet} active TriNessa (28) 0.18/0.21 5/0.25 MG-35 MCG eCW1 ([facility]) 0.18/0.215/0.25 mg-35 mcg (28) 12/10/2019 12:00:00 AM EDT ta blet 84 TAKE ONE TABLET BY MOUTH EVERY DAY TAKE ONE TABLET BY MOUTH EVERY DAY SOLD: 12/11/2019 [facility] 150 mg 10/25/2019 12:00:00 AM EST tablet 2 TAKE ONE TABLET BY MOUTH ONCE WEEKLY TAKE ONE TABLET BY MOUTH ONCE WEEKLY SOLD: 10/25/2019 [facility] 50 mcg/actuation 10/16/2019 12:00:00 AM EST spray,suspension 32 INSTILL 2 SPRAYS IN EACH NOSTRIL ONCE DAILY INSTILL 2 SPRAYS IN EACH NOSTRIL ONCE DAILY SOLD: 12/11/2019 [facility] 50 mcg/actuation 10/16/2019 12:00:00 AM EST spray,suspension 16 INSTILL 2 SPRAYS IN EACH NOSTRIL ONCE DAILY INSTILL 2 SPRAYS IN EACH NOSTRIL ONCE DAILY SOLD: 06/17/2020 [facility] 50 mcg/actuation 10/16/2019 12:00:00 AM EST spray,suspension 16 INSTILL 2 SPRAYS IN EACH NOSTRIL ONCE DAILY INSTILL 2 SPRAYS IN EACH NOSTRIL ONCE DAILY SOLD: 03/26/2020 [facility] 50 mcg/actuation 10/16/2019 12:00:00 AM EST spray,suspension 32 INSTILL 2 SPRAYS IN EACH NOSTRIL ONCE DAILY INSTILL 2 SPRAYS IN EACH NOSTRIL ONCE DAILY SOLD: 10/19/2019 [facility] 50 mcg/actuation 10/16/2019 12:00:00 AM EST spray,suspension 16 INSTILL 2 SPRAYS IN EACH NOSTRIL ONCE DAILY INSTILL 2 SPRAYS IN EACH NOSTRIL ONCE DAILY SOLD: 07/29/2020 [facility] 50 mcg/actuation 10/16/2019 12:00:00 AM EST spray,suspension 16 INSTILL 2 SPRAYS IN EACH NOSTRIL ONCE DAILY INSTILL 2 SPRAYS IN EACH NOSTRIL ONCE DAILY SOLD: 05/07/2020 [facility] 875-125 mg 10/09/2019 12:00:00 AM EST tablet 20 TAKE ONE TABLET BY MOUTH TWICE A DAY FOR 10 DAYS TAKE ONE TABLET BY MOUTH TWICE A DAY FOR 10 DAYS SOLD: 10/09/2019 [facility] 0.18/0.215/0.25 mg-35 mcg (28) 09/22/2019 12:00:00 AM EST ta blet 84 TAKE ONE TABLET BY MOUTH EVERY DAY TAKE ONE TABLET BY MOUTH EVERY DAY SOLD: 09/24/2019 [facility] TriNessa (28) 0.18/0.215/0.25 MG-35 MCG UNK 09/21/2019 12: 00:00 AM EST 1.0 {tablet} active TriNessa (28) 0.18/0.21 5/0.25 MG-35 MCG eCW1 ([facility]) TriNessa (28) 0.18/0.215/0.25 MG-35 MCG UNK 09/21/2019 12: 00:00 AM EST 1.0 {tablet} active TriNessa (28) 0.18/0.21 5/0.25 MG-35 MCG eCW1 ([facility]) 10 mg 09/08/2019 12:00:00 AM EST tablet 90 TAKE ONE TABLET BY MOUTH EVERY DAY TAKE ONE TABLET BY MOUTH EVERY DAY SOLD: 03/03/2020 [facility] 10 mg 09/08/2019 12:00:00 AM EST tablet 90 TAKE ONE TABLET BY MOUTH EVERY DAY TAKE ONE TABLET BY MOUTH EVERY DAY SOLD: 09/08/2019 [facility] 10 mg 09/08/2019 12:00:00 AM EST tablet 90 TAKE ONE TABLET BY MOUTH EVERY DAY TAKE ONE TABLET BY MOUTH EVERY DAY SOLD: 06/01/2020 [facility] 10 mg 09/08/2019 12:00:00 AM EST tablet 90 TAKE ONE TABLET BY MOUTH EVERY DAY TAKE ONE TABLET BY MOUTH EVERY DAY SOLD: 12/11/2019 [facility] Insurance Providers Payer name Policy type / Coverage type Policy ID Covered alliance party ID Covered alliance party's relationship to nelson Policy Nelson Plan Information [facility] [id number] SP [id number] [facility] [id number] SP [id number] Umr/[facility] (HMO) [id number] Self [id number] [facility] [id number] SP [id number] [employer] Commercial [id number] Self [id number] [employer] Commercial [id number] Self [id number] Umr/c/[employer] (HMO) [id number] Self [id number] [employer] [id number] SP [id number] [employer] [id number] SP [id number] [employer] [id number] SP [id number] [employer] (HMO) [id number] Se lf [id number] [employer] [id number] Self [id number] [employer] [id number] Self [id number] [employer] [id number] Self [id number] [employer] [id number] Self [id number] [employer] Self [employer] Self [id number] Problems, Conditions, and Diagnoses Code Display Name Description Problem Type Effective Dates Data Source(s) N20.0 Nephrolithiasis Nephrolithiasis Problem 09/01/2020 12:0 0:00 AM EST eCW1 ([facility]) Surgeries/Procedures Procedure Description Date Indications Data Source(s) Mammogram 12/19/2019 12:00:00 AM JESIKA STEIN ([facility] Results ID Date Data Source [id number] 09/09/2020 09:03:00 AM EST [place] ([facility]) Name Value Range Interpretation Code Description Data Poornima rce(s) Supporting Document(s) sars-cov-2 positive negative Abnormal (applies to non-num dann results) Sars-cov-2 [place] ([facility]) ID Date Data Source [id number] 09/09/2020 08:01:00 AM EST [facility] Name Value Range Interpretation Code Description Data Poornima rce(s) Supporting Document(s) SARS coronavirus 2 RdRp gene [Presence] in Respiratory specimen by BHUPENDRA with probe detection Detected [facility] This lab was ordered by [facility] and reported by [facility]. ID Date Data Source [id number] 09/04/2020 12:00:00 AM EST [facility] Name Value Range Interpretation Code Description Data Poornima rce(s) Supporting Document(s) SARS coronavirus 2 RNA [Presence] in Res piratory specimen by BHUPENDRA with probe detection NEGATIVE [place] This lab was [facility] and reported by [facility]. ID Date Data Source [id number] 08/26/2020 03:53:00 PM EST [facility] Name Value Range Interpretation Code Description Data Poornima rce(s) Supporting Document(s) SARS coronavirus 2 RdRp gene [Presence] in Respiratory specimen by BHUPENDRA with probe detection Not detected [facility] This lab was ordered by [facility] and reported by [facility]. ID Date Data Source [id number] 08/26/2020 03:48:00 PM EST [place] ([facility]) Name Value Range Interpretation Code Description Data Poornima rce(s) Supporting Document(s) sars-cov-2 negative negative normal Sars-cov-2 [place] ([facility]) ID Date Data Source [id number] 08/23/2020 03:18:00 PM EST [facility] ([facility] Name Value Range Interpretation Code Description Data Poornima rce(s) Supporting Document(s) Bacteria identified in Urine by Culture Laboratory test result [facility] ([facility] FULL REPORT IN LAB NOTES ([facility]CW and [facility] ). NO GROWTH ID Date Data Source [id number] 08/11/2020 10:48:00 AM EST [facility] ([facility] Name Value Range Interpretation Code Description Data Poornima rce(s) Supporting Document(s) Bacteria identified in Urine by Culture Laboratory test result [facility] ([facility] ID Date Data Source [id number] 08/11/2020 10:27:00 AM EST [facility] ([facility] Name Value Range Interpretation Code Description Data Poornima rce(s) Supporting Document(s) Specific gravity of Urine 1.015 [facility] ([facility] pH of Urine by Test strip 6.5 [facility] ([facility] Color of Urine Laboratory test result [facility] ([facility] Appearance of Urine Laboratory test result [facility] ([facility] Leukocytes [#/area] in Urine sediment by Microscopy hi gh power field Laboratory test result [facility] ([facility] Protein [Presence] in Urine by Test strip Laboratory test result [facility] ([facility] Ketones [Presence] in Urine by Test strip Laboratory test result [facility] ([facility] Bilirubin.total [Presence] in Urine by Test strip Laboratory test res ult [facility] ([facility] Glucose [Presence] in Urine Laboratory test result [facility] ([facility] Nitrite [Presence] in Urine by Test strip Laboratory test result [facility] ([facility] Urobilinogen [Mass/volume] in Urine by Test strip Laboratory test res ult [facility] ([facility] Hemoglobin [Presence] in Urine by Test strip Laboratory test result [facility] ([facility] ID Date Data Source [id number] 07/12/2020 03:41:00 PM EST [facility] ([facility] Name Value Range Interpretation Code Description Data Poornima e(s) Supporting Document(s) Triglycerides Level 197 mg/dL [facility] ([facility] Cholesterol Level 216 mg/dL [facility] ([facility] HDL Cholesterol 63 mg/dL [facility] ([facility] LDL Cholesterol 114 mg/dL [facility] ([facility] Non-HDL-C 153 mg/dL [facility] ([facility] Cholesterol Risk Ratio 3.428 [facility] ([facility] ID Date Data Source [id number] 07/12/2020 03:41:00 PM EST [facility] ([facility] Name Value Range Interpretation Code Description Data Poornima rce(s) Supporting Document(s) Glucose, Fasting 77 mg/dL 70-100 [facility] ([facility] Blood Urea Nitrogen 16 mg/dL 7-18 [facility] ([facility] Creatinine For GFR 0.85 mg/dL 0.55-1.30 [facility] ([facility] Glomerular Filtration Rate Laboratory test result [facility] ([facility] <content>Units are mL/min/1.73 m2</content>
<content></content>
<content>Chronic Kidney Disease Staging per NKF:</content>
<content></content>
<content>Stage I & II GFR >=60 Normal to Mildly Decreased</content>
<content>Stage III GFR 30- 59 Moderately Decreased</content>
<content>Stage IV GFR 15-29 Severely Decreased</content>
<content>Stage V GFR <15 Very Little GFR Left</content>
<content>ESRD GFR <15 on [facility]</content>
<content></content> Potassium Serum 4.4 meq/L 3.5-5.1 [facility] ([facility] Sodium Level 138 meq/L 136-145 [facility] ([facility] Chloride Level 103 meq/L 98-107 [facility] ([facility] Anion Gap 5 meq/L 8-16 [facility] ([facility] Carbon Dioxide Level 30 meq/L 21-32 [facility] ([facility] Calcium Level 9.7 mg/dL 8.5-10.1 [facility] ([facility] Alt/SGPT 30 U/L 12-78 [facility] ([facility] Ast/Sgot 18 U/L 7-37 [facility] ([facility] Bilirubin,Total 0.7 mg/dL 0.2-1.0 [facility] ([facility] Alkaline Phosphatase 51 U/L 45-117 [facility] ([facility] Albumin 3.4 GM/DL 3.2-5.2 [facility] ([facility] Total Protein 6.6 GM/DL 6.4-8.2 [facility] ([facility] Albumin/Globulin Ratio 1.1 1.2-2.2 [facility] ([facility] ID Date Data Source [id number] 07/12/2020 03:41:00 PM EST [facility] ([facility] Name Value Range Interpretation Code Description Data Poornima rce(s) Supporting Document(s) Neutrophils % 57.4 % 36.0-66.0 [facility] ([facility] Lymph % 34.3 % 24.0-44.0 [facility] ([facility] Pettis % 5.6 % 0.0-5.0 [facility] ([facility] Eos % 1.8 % 0.0-3.0 [facility] ([facility] Baso % 0.7 % 0.0-1.0 [facility] ([facility] Immature Granulocyte % 0.2 % 0-3.0 [facility] ([facility] Lymph # 4.0 10 1.5-5.0 [facility] ([facility] Pettis # 0.6 10 0.0-0.8 [facility] ([facility] Neutrophils # 6.6 10 1.5-8.5 [facility] ([facility] Eos # 0.2 10 0.0-0.5 [facility] ([facility] Baso # 0.1 10 0.0-0.2 [facility] ([facility] ID Date Data Source [id number] 07/12/2020 03:41:00 PM EST [facility] ([facility] Name Value Range Interpretation Code Description Data Poornima rce(s) Supporting Document(s) White Blood Count 11.5 10 4.0-10.0 [facility] ([facility] Hemoglobin 13.3 g/dL 12.0-15.5 [facility] ([facility] Red Blood Count 4.44 10 4.00-5.40 [facility] ([facility] Mean Corpuscular Volume 93.7 fl 80.0-96.0 M EDENT ([facility] Mean Corpuscular Hemoglobin 30.0 pg 27.0-33.0 [facility] ([facility] Hematocrit 41.6 % 36.0-47.0 [facility] ([facility] Platelet Count, Automated 341 10 150-450 [facility] ([facility] Mean Corpuscular HGB Conc 32.0 g/dL 32.0-36.5 [facility] ([facility] Red Cell Distribution Width 12.5 % 11.5-14.5 [facility] ([facility] Nucleated Red Blood Cell % 0.0 % 0-0 MED ENT ([facility] Procedure Social History Code Duration Value Status Description Data Source(s ) Smoking 08/27/2020 12:00:00 AM EST Never Smoker completed Never S moker eCW1 ([facility]) Smoking 08/11/2020 12:00:00 AM EST Patient has never smoked co mpleted Patient has never smoked [facility] ([facility] Smoking 01/13/2020 12:00:00 AM EDT Never Smoker completed Never S moker eCW1 ([facility]) Vital Signs ID Date Data Source UNK Name Value Range Interpretation Code Description Data Source(s) Diastolic blood pressure 82 mm[Hg] 82 mm[Hg] eCW1 ([facility]) Systolic blood pressure 142 mm[Hg] 142 mm[Hg] e CW1 ([facility]) Body mass index (BMI) [Ratio] 36.02 kg/m2 36.02 kg/m2 W1 ([facility]) Body height 67 [in_i] 67 [in_i] W1 ([facility]) Body weight 230 [lb_av] 230 [lb_av] W1 ([facility]) Body mass index (BMI) [Ratio] 35.1 kg/m2 35.1 k g/m2 [facility] ([facility] [employer] body weight 135 [lb_av] 135 [lb_av] MEDEN T ([facility] Oxygen saturation in Arterial blood by Pulse oximetry 100 % 100 % MED[facility] ([facility] Body weight 229.25 [lb_av] 229.25 [lb_av] MEDEN T ([facility] Body height 67.75 [in_i] 67.75 [in_i] MED[facility] ([facility] 5'7.75" had winter shoes on Respiratory rate 16 /min 16 /min [facility] ( [facility] Body temperature 99.1 [degF] 99.1 [degF] [facility] ([facility] Heart rate 68 /min 68 /min [facility] ([facility] Diastolic blood pressure 67 mm[Hg] 67 mm[Hg] [facility] ([facility] Systolic blood pressure 125 mm[Hg] 125 mm[Hg] EDENT ([facility] Body mass index (BMI) [Ratio] 35.0 kg/m2 35.0 k g/m2 [facility] ([facility] [employer] body weight 135 [lb_av] 135 [lb_av] MEDEN T ([facility] Oxygen saturation in Arterial blood by Pulse oximetry 98 % 98 % MED[facility] ([facility] Body weight 228.38 [lb_av] 228.38 [lb_av] MEDEN T ([facility] Body height 67.75 [in_i] 67.75 [in_i] [facility] ([facility] 5'7.75" had winter shoes on Respiratory rate 16 /min 16 /min [facility] ( [facility] Body temperature 97.1 [degF] 97.1 [degF] [facility] ([facility] Heart rate 85 /min 85 /min [facility] ([facility] Diastolic blood pressure 67 mm[Hg] 67 mm[Hg] [facility] ([facility] Systolic blood pressure 106 mm[Hg] 106 mm[Hg] M EDENT ([facility] Diastolic blood pressure 78 mm[Hg] 78 mm[Hg] eCW1 ([facility]) Systolic blood pressure 126 mm[Hg] 126 mm[Hg] e CW1 ([facility]) Body mass index (BMI) [Ratio] 34.7 kg/m2 34.7 k g/m2 eCW1 ([facility]) Body height 67 [in_i] 67 [in_i] W1 ([facility]) Body weight 221.6 [lb_av] 221.6 [lb_av] eCW1 ([facility]) Patient Treatment Plan of Care Planned Activity Planned Date Details Description Data Source (s) Preet (28) 0.18/0.215/0.25 MG-35 MCG 01/13/2020 12:00:00 AM EDT eCW1 ([facility])
[2020-10-01] MEDS ORDERED: TRI-TAB16 PO (09:02)
[2020-10-01] MEDS ORDERED: LISI10TA22 PO (09:02)
[2020-10-01] MEDS ORDERED: CENTCHW4 PO (09:02)
[2020-10-01] MEDS ORDERED: METOPROLOL 5 MG/5 ML VIAL As Ordered ONE (09:27)
[2020-10-01] MEDS: METOPROLOL 5 MG/5 ML VIAL IV SCH ×6 (09:28→10:16)
[2020-10-01] MEDS ORDERED: METOPROLOL TART 50 MG TAB PO ONE (09:30)
[2020-10-01 09:37] LABS: BASO # 0.1 10^3/uL (0.0-0.2); BASO % 0.7 % (0.0-1.0); EOS # 0.2 10^3/uL (0.0-0.5); EOS % 1.9 % (0.0-3.0); HEMATOCRIT 43.8 % (36.0-47.0); HEMOGLOBIN 14.5 g/dl (12.0-15.5); LYMPH # 2.6 10^3/uL (1.5-5.0); LYMPH % 30.4 % (24.0-44.0); MEAN CORPUSCULAR HEMOGLOBIN 30.3 pg (27.0-33.0); MEAN CORPUSCULAR HGB CONC 33.1 g/dl (32.0-36.5); MEAN CORPUSCULAR VOLUME 91.4 fl (80.0-96.0); MONO # 0.6 10^3/uL (0.0-0.8); MONO % 6.6 % (0.0-5.0); NEUTROPHILS # 5.1 10^3/uL (1.5-8.5); NEUTROPHILS % 60.2 % (36.0-66.0); PLATELET COUNT, AUTOMATED 329 10^3/uL (150-450); RED BLOOD COUNT 4.79 10^6/uL (4.00-5.40); WHITE BLOOD COUNT 8.5 10^3/uL (4.0-10.0)
--- NOTE | 2020-10-01 09:39 | REP ---
INDICATION: AFib. COMPARISON: No comparison study. TECHNIQUE: Portable upright AP chest radiograph. FINDINGS: The lungs are well inflated and free of infiltrate. Pleural angles are sharp. Heart size is normal. Pulmonary vasculature is not increased. Monitoring electrodes are noted. IMPRESSION: No active disease. <Electronically signed by Gil Conley > 10/01/20 0933
[2020-10-01 10:08] LABS: BLOOD UREA NITROGEN 16 MG/DL (7-18); CALCIUM LEVEL 9.2 MG/DL (8.5-10.1); CARBON DIOXIDE LEVEL 25 MEQ/L (21-32); CHLORIDE LEVEL 109 MEQ/L (98-107); CK-MB VALUE MASS < 1.0 NG/ML (<3.6); CPK CREATINE PHOSPHOKINASE 68 U/L (26-192); CREATININE FOR GFR 0.81 MG/DL (0.55-1.30); GLOMERULAR FILTRATION RATE > 60.0 (>58); GLUCOSE, FASTING 106 MG/DL (70-100); MB/CK RELATIVE INDEX 1.47 (< OR =4); POTASSIUM SERUM 3.9 MEQ/L (3.5-5.1); SODIUM LEVEL 143 MEQ/L (136-145); TROPONIN I < 0.02 NG/ML (< 0.10)
--- OUTSIDE RECORDS SUMMARY | 2020-10-01 10:16 | CCD ---
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 If you continue you may have access to information: Regarding HIV / AIDS; Provided by facilities licensed or operated by the [facility] Office of Mental Health; or Provided by the [facility] Office for People With Developmental Disabilities. If such information is present, then the following [facility] mandated warning applies: This information has been [...] law may result in a fine or group home sentence or both. A general authorization for the release of medical or other information is NOT sufficient authorization for further disc losure. Allergies and Adverse Reactions Type Description Substance Reaction Status Data Source(s ) Allergy to substance Allergy to substance Allergy to substance MODESTA ([facility]) Allergy to substance Allergy to substance Allergy to substance MODESTA ([facility]) Family History Family Member Name Family Member [...] Data Source(s ) Raymond Herzog MD: [address] [place] [address], Ph. Attender: Raymond Herzog MD [facility] Medical 09/09/2020 12:00:00 AM EST MODESTA ([facility]) Office Visit, Est Pt., Level 4 PC [address] [place] [address] 09/01/2020 12:00:00 AM EST eCW1 ([facility]) Raymond Herzog MD: [address] [place] [address], Ph. Attender: Raymond Herzog MD [facility] Medical 08/26/2020 12:00:00 AM EST MODESTA ([facility]) Raymond Herzog MD: [address] [place] [phone], Ph. Attender: Raymond Herzog MD [facility] Medical 08/26/2020 12:00:00 AM EST MODESTA ([facility]) Outpatient Attender: Jeannine Rae MD Main Office 08/11/2020 09:15:0 0 AM EST [facility] ([facility] Outpatient Attender: Jeannine Rae MD Main Office 07/28/2020 06:30:0 0 AM EST [facility] ([facility] Outpatient [address] [place] [phone] 01/13/2020 12:00:00 AM EDT eCW1 ([facility]) Immunizations Vaccine Date Status Description Data Source(s) INFLUENZA VIRUS VACCINE QUADRIVAL [id number](6 MOS AND UP)/PF 05/29/2020 12:00:00 AM EDT [...] TriNessa (28) 0.18/0. 215/0.25 MG-35 MCG eCW1 ([facility]) Tri[place]essa (28) 0.18/0.215/0.25 MG-35 MCG UNK 01/13/2020 12: 00:00 AM EDT 1.0 {tablet} active TriNessa (28) 0.18/0.21 5/0.25 MG-35 MCG eCW1 ([facility]) 0.18/0.215/0.25 mg-35 mcg (28) 12/10/2019 12:00:00 [...] TriNessa (28) 0.18/0.21 5/0.25 MG-35 MCG eCW1 ([facility]) TriNessa (28) 0.18/0.215/0.25 MG-35 MCG UNK 09/21/2019 12: 00:00 AM EST 1.0 {tablet} active TriNessa (28) 0.18/0.21 5/0.25 MG-35 MCG eCW1 ([facility]) 10 mg 09/08/2019 12:00:00 AM EST [...] type / Coverage type Policy ID Covered green party ID Covered green party's relationship to nelson Policy Nelson Plan Information [facility] [id number] SP [id number] [facility] [id number] SP [id number] Umr/[facility] (HMO) [id number] Self [id number] UMR [facility] [id number] SP [id number] [employer] [id number] Self [id number] [employer] [id number] Self [id number] Umr/c/[employer] (HMO) [id number] Self [id number] [employer] [id number] SP [id number] [employer] [id number] SP [id number] [employer] [id number] SP [id number] [employer] ([employer]) [id number] Se lf [id number] [employer] [id number] Self [id number] [employer] [id number] Self [id number] [employer] [id number] Self [id number] [employer] [id number] Self [id number] [employer] Self [employer] Self [id number] Problems, Conditions, and Diagnoses Code Display Name Description Problem Type Effective Dates Data Source(s) N20.0 Nephrolithiasis Nephrolithiasis Problem 09/01/2020 12:0 0:00 AM EST eCW1 ([facility]) Surgeries/Procedures Procedure Description Date Indications Data Source(s) Mammogram 12/19/2019 12:00:00 AM JESIKA STEIN ([facility] Results ID Date Data Source [id number] 09/09/2020 09:03:00 AM EST MODESTA ([facility]) Name Value Range Interpretation Code Description Data Poornima rce(s) Supporting Document(s) sars-cov-2 positive negative Abnormal (applies to non-num dann results) Sars-cov-2 STURGIS ([facility]) ID Date Data Source [id number] 09/09/2020 08:01:00 AM EST [facility] Name Value Range Interpretation Code Description Data Poornima rce(s) Supporting Document(s) SARS coronavirus 2 RdRp gene [Presence] in Respiratory specimen by BHUPENDRA with probe detection Detected [facility] This lab was ordered by [facility] and reported by [facility]. ID Date Data Source [id number] 09/04/2020 12:00:00 AM EST [facility] Name Value Range Interpretation Code Description Data Poornima rce(s) Supporting Document(s) SARS coronavirus 2 RNA [Presence] in Res piratory specimen by BHUPENDRA with probe detection NEGATIVE [facility] This lab [facility] and reported by [facility]. ID Date Data Source [id number] 08/26/2020 03:53:00 PM EST [facility] Name Value Range Interpretation Code Description Data Poornima rce(s) Supporting Document(s) SARS coronavirus 2 RdRp gene [Presence] in Respiratory specimen by BHUPENDRA with probe detection Not detected [facility] This lab was ordered by [facility] and reported by [facility]. ID Date Data Source [id number] 08/26/2020 03:48:00 PM EST MODESTA ([facility]) Name Value Range Interpretation Code Description Data Poornima rce(s) Supporting Document(s) sars-cov-2 negative negative normal Sars-cov-2 STURGIS ([facility]) ID Date Data Source [id number] 08/23/2020 03:18:00 PM EST MED[facility] ([facility] Name Value Range Interpretation Code Description Data Poornima rce(s) Supporting Document(s) Bacteria identified in Urine by Culture Laboratory test result MED[facility] ([facility] FULL REPORT IN LAB NOTES (eCW and [facility] ). NO GROWTH ID Date Data Source [id number] 08/11/2020 10:48:00 AM EST [facility] ([facility] Name Value Range Interpretation Code Description Data Poornima rce(s) Supporting Document(s) Bacteria identified in Urine by Culture Laboratory test result [facility] ([facility] ID Date Data Source [id number] 08/11/2020 10:27:00 AM EST MEDENT ([facility] [...] [facility] ID Date Data Source [id number] 07/12/2020 03:41:00 PM EST MED[facility] ([facility] [...] [facility] ID Date Data Source [id number] 07/12/2020 03:41:00 PM EST MEDENT ([facility] [...] Little GFR Left</content>
<content>ESRD GFR <15 on TRAINING MANAGER</content>
<content></content> Potassium Serum 4.4 meq/L 3.5-5.1 MEDENT [...] [facility] ID Date Data Source [id number] 07/12/2020 03:41:00 PM EST [facility] ([facility] Name Value Range Interpretation Code Description Data Poornima rce(s) Supporting Document(s) Neutrophils % 57.4 % 36.0-66.0 [facility] ([facility] Lymph % 34.3 % 24.0-44.0 [facility] ([facility] Bailey % 5.6 % 0.0-5.0 [facility] ([facility] Eos % 1.8 % 0.0-3.0 [facility] ([facility] Baso % 0.7 % 0.0-1.0 [facility] ([facility] Immature Granulocyte % 0.2 % 0-3.0 [facility] ([facility] Lymph # 4.0 10 1.5-5.0 [facility] ([facility] Bailey # 0.6 10 0.0-0.8 [facility] ([facility] Neutrophils # 6.6 10 1.5-8.5 [facility] ([facility] Eos # 0.2 10 0.0-0.5 [facility] ([facility] Baso # 0.1 10 0.0-0.2 [facility] ([facility] ID Date Data Source [id number] 07/12/2020 03:41:00 PM EST MEDENT ([facility]ine [facility] [...] Never Smoker completed Never S moker eCW1 ([facility]) Smoking 08/11/2020 12:00:00 AM EST Patient has never smoked co mpleted Patient has never smoked [facility] ([facility] Smoking 01/13/2020 12:00:00 AM EDT Never Smoker completed Never S moker eCW1 ([facility]) Vital Signs ID Date Data Source UNK Name Value Range Interpretation Code Description Data Source(s) Diastolic blood pressure 82 mm[Hg] 82 mm[Hg] eCW1 ([facility]) Systolic blood pressure 142 mm[Hg] 142 mm[Hg] e CW1 ([facility]) Body mass index (BMI) [Ratio] 36.02 kg/m2 36.02 kg/m2 W1 ([facility]) Body height 67 [in_i] 67 [in_i] W1 ([facility]) Body weight 230 [lb_av] 230 [lb_av] W1 ([facility]) Body mass index (BMI) [Ratio] 35.1 kg/m2 35.1 k g/m2 [facility] ([facility] [place] body weight 135 [lb_av] 135 [lb_av] MEDEN [...] k g/m2 MED[facility] ([facility] [place] body weight 135 [lb_av] 135 [lb_av] MEDEN [...] blood pressure 78 mm[Hg] 78 mm[Hg] eCW1 ([facility]) Systolic blood pressure 126 mm[Hg] 126 mm[Hg] e CW1 ([facility]) Body mass index (BMI) [Ratio] 34.7 kg/m2 34.7 k g/m2 eCW1 ([facility]) Body height 67 [in_i] 67 [in_i] W1 ([facility]) Body weight 221.6 [lb_av] 221.6 [lb_av] eCW1 ([facility]) Patient Treatment Plan of Care Planned Activity Planned Date Details Description Data Source (s) Preet (28) 0.18/0.215/0.25 MG-35 MCG 01/13/2020 12:00:00 AM EDT eCW1 ([facility])
[2020-10-01] MEDS ORDERED: AMIODARONE HCL 150 MG in IV 1 EA IV STA ×2 (10:41→11:17)
[2020-10-01] MEDS ORDERED: atenoloL 25 MG TAB PO ONE (15:30)
[2020-10-01] MEDS ORDERED: RIVAROXABAN 10 MG TAB (XARELTO) PO ONE (15:30)
[2020-10-01] MEDS ORDERED: AMIODARONE 200 MG TAB (PACERONE) PO ONE (15:30)
[2020-10-01 15:40] VITALS: BP 116/72
[2020-10-01 16:00] VITALS: BP 126/64
--- NOTE | 2020-10-01 21:26 | ECGEPIP ---
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
== END 2020-10-01 16:10 | disposition home or self-care (01) ==
LOC: M ED 08:45
DX: I48.91 Unspecified atrial fibrillation (principal); I10 Essential (primary) hypertension; N92.6 Irregular menstruation, unspecified; Z79.899 Other long term (current) drug therapy; Z79.3 Long term (current) use of hormonal contraceptives; F17.210 Nicotine dependence, cigarettes, uncomplicated
CPT/HCPCS: 71045; 80048; 82550; 82553; 83735; 84443; 84484; 85025; 93005; 93041; 94760; 96374; 96375; 96376; 99285; J0282

== ENCOUNTER 2020-10-02 07:24 | Emergency (ER) | payer OTHER ==
[~2020-10-02] VITALS: Ht 170.2 cm; Wt 103.3 kg
[~2020-10-02 07:24] MED LIST: CENTCHW4 PO; LISI10TA22 PO; TRI-TAB16 PO
--- OUTSIDE RECORDS SUMMARY | 2020-10-02 07:29 | CCD ---
Author Author [facility] Organization [facility] Address Unknown Phone Unavailable Care Team Providers Care Clothes Designer Name Role Phone Elie Rae MD Unavailable Unavailable Butch, Elie Paez MD Unavailable Unavailable Elie aRe MD Unavailable Unavailable Elie Rae MD Unavailable [...] Butch, Elie Paez MD Unavailable Unavailable Butch, lEie Paez MD Unavailable Unavailable Butch, Elie Paez MD Unavailable Unavailable Butch, Elie Paez MD Unavailable Unavailable Butch, Elie Paez MD Unavailable Unavailable Butch, Elie Paez MD Unavailable Unavailable Butch, Elie Paez MD Unavailable Unavailable Butch, Elie Paez MD Unavailable Unavailable Butch, Elie Paez MD Unavailable Unavailable Bucth, Elie Paez MD Unavailable Unavailable Butch, Elie [...] is protected by Article 27-F of the [facility] Public Health law. If you continue you may have access to information: Regarding HIV / AIDS; Provided by facilities licensed or operated by the [facility] Office of Mental Health; or Provided by the [facility] Office for People With Developmental Disabilities. If such information is present, then the following [facility] mandated warning applies: This information has [...] law may result in a fine or care home sentence or both. A general authorization for the release of medical or other information is NOT sufficient authorization for further disc losure. Allergies and Adverse Reactions Type Description Substance Reaction Status Data Source(s ) Allergy to substance Allergy to substance Allergy to substance [facility] ([facility]) Allergy to substance Allergy to substance Allergy to substance [facility] ([facility]) Family History Family Member Name Family Member [...] Data Source(s ) Raymond Herzog MD: [address] [place] [phone], Ph. Attender: Raymond Herzog MD [facility] Medical 09/09/2020 12:00:00 AM EST [place] ([facility]) Office Visit, Est Pt., Level 4 PC [address] [place] [address] 09/01/2020 12:00:00 AM EST eCW1 ([facility]) Raymond Herzog MD: [address] [place] [address], Ph. Attender: Raymond Herzog MD [facility] Medical 08/26/2020 12:00:00 AM EST [place] ([facility]) Raymond Herzog MD: [address] [place] [phone], Ph. Attender: Raymond Herzog MD [facility] Medical 08/26/2020 12:00:00 AM EST [facility] ([facility]) Outpatient Attender: Jeannine aRe MD Main Office 08/11/2020 09:15:0 0 AM EST MEDENT ([facility] Outpatient Attender: Jeannine Rae MD Main Office 07/28/2020 06:30:0 0 AM EST MED[facility] ([facility] Outpatient [address] [place] [phone] 01/13/2020 12:00:00 AM EDT eCW1 ([facility]) Immunizations Vaccine Date Status Description Data Source(s) INFLUENZA VIRUS VACCINE QUADRIVAL [id number](6 MOS AND UP)/PF 05/29/2020 12:00:00 AM EDT [...] TriNessa (28) 0.18/0. 215/0.25 MG-35 MCG eCW1 ([facility]) TriNessa (28) 0.18/0.215/0.25 MG-35 MCG UNK 01/13/2020 12: 00:00 AM EDT 1.0 {tablet} active TriNessa (28) 0.18/0.21 5/0.25 MG-35 MCG eCW1 ([facility]) 0.18/0.215/0.25 mg-35 mcg (28) 12/10/2019 12:00:00 AM [...] TriNessa (28) 0.18/0.21 5/0.25 MG-35 MCG eCW1 ([facility]) TriNessa (28) 0.18/0.215/0.25 MG-35 MCG UNK 09/21/2019 12: 00:00 AM EST 1.0 {tablet} active TriNessa (28) 0.18/0.21 5/0.25 MG-35 MCG eCW1 ([facility]) 10 mg 09/08/2019 12:00:00 AM EST tablet [...] to nelson Policy Nelson Plan Information UMR [facility] [id number] SP [id number] [facility]MR [facility] [id number] SP [id number] Umr/c/[employer] (HMO) [id number] Self [id number] UMR [facility] CARE [id number] SP [id number] Umr Commercial [id number] Self [id number] Umr Commercial [id number] Self [id number] Umr/c/[employer] (HMO) [id number] Self [id number] [employer] [id number] SP [id number] [employer] [id number] SP [id number] [employer] [id number] SP [id number] [employer] (HMO) [id number] Se lf [id number] [employer] [id number] Self [id number] [employer] [id number] Self [id number] [employer] [id number] Self [id number] [employer] [id number] Self [id number] [employer] Self [employer] Self [id number] Problems, Conditions, and Diagnoses Code Display Name Description Problem Type Effective Dates Data Source(s) N20.0 Nephrolithiasis Nephrolithiasis Problem 09/01/2020 12:0 0:00 AM EST eCW1 ([facility]) Surgeries/Procedures Procedure Description Date Indications Data Source(s) Mammogram 12/19/2019 12:00:00 AM EDT M EDENT ([facility] Results ID Date Data Source [id number] 10/01/2020 09:23:00 AM EST [facility] ([facility] Name Value Range Interpretation Code Description Data Poornima rce(s) Supporting Document(s) Thyrotropin [Units/volume] in Serum or Plasma 2.230 uIU/ML 0.358-3.74 0 [facility] ([facility] ID Date Data Source [id number] 10/01/2020 09:23:00 AM EST [facility] ([facility] Name Value Range Interpretation Code Description Data Poornima rce(s) Supporting Document(s) Blood Urea Nitrogen 16 mg/dL 7-18 [facility] ([facility] Glucose, Fasting 106 mg/dL 70-100 [facility] ([facility] Sodium Level 143 meq/L 136-145 [facility] ([facility] Creatinine For GFR 0.81 mg/dL 0.55-1.30 [facility] ([facility] [...] Little GFR Left</content>
<content>ESRD GFR <15 on [employer]</content>
<content></content> Chloride Level 109 meq/L 98-107 [facility] ([facility] Potassium Serum 3.9 meq/L 3.5-5.1 [facility] ([facility] Carbon Dioxide Level 25 meq/L 21-32 [facility] ([facility] Anion Gap 9 meq/L 8-16 [facility] ([facility] Calcium Level 9.2 mg/dL 8.5-10.1 [facility] ([facility] ID Date Data Source [id number] 10/01/2020 09:23:00 AM EST [facility] ([facility] Name Value Range Interpretation Code Description Data Poornima e(s) Supporting Document(s) CPK Creatine Phosphokinase 68 U/L 26-192 [facility] ([facility] MB/CK Relative Index 1.47 [facility] ([facility] <content>DIAGNOSIS CRITERIA</content>
<content>MMB ng/ml Relative Index (RI)</content>
<content>NON-AMI < or = 5 N/A</content>
<content>ROGEL ZONE > 5 < or = 4</content>
<content>AMI > 5 > 4</content>
<content></content> Troponin I Laboratory test result [facility] ([facility] <content>Troponin I Reference Interval f or Siemens Burket LOCI:</content>
<content></content>
<content>99th Percentile= 0.00-0.045 ng/ml</content>
<content></content>
<content>Risk Stratification:</content>
<content><= 0.10 ng/ml Decreased Risk for Adverse Clinical</content>
<content>Events.</content>
<content>0.10-1.50 ng/ml Increased Risk for Adverse Clinical</content>
<content>Events. Evaluation of additional</content>
<content>criterion and/or repeat testing in 2-6</content>
<content>hours is suggested to rule out myocardial</content>
<content>damage.</content>
<content>>= 1.50 ng/ml Indicative of Myocardial Injury.</content>
<content></content> CK-MB Value Mass Laboratory test result [facility] ([facility] ID Date Data Source [id number] 10/01/2020 09:23:00 AM EST [facility] ([facility] Name Value Range Interpretation Code Description Data Poornima rce(s) Supporting Document(s) Magnesium [Mass/volume] in Serum or Plasma 2.0 mg/dL 1.8-2.4 [facility] ([facility] ID Date Data Source [id number] 10/01/2020 09:23:00 AM EST [facility] ([facility] Name Value Range Interpretation Code Description Data Poornima rce(s) Supporting Document(s) White Blood Count 8.5 10 4.0-10.0 [facility] ([facility] Red Blood Count 4.79 10 4.00-5.40 [facility] ([facility] Hemoglobin 14.5 g/dL 12.0-15.5 [facility] ([facility] Mean Corpuscular Volume 91.4 fl 80.0-96.0 M EDENT ([facility] Hematocrit 43.8 % 36.0-47.0 [facility] ([facility] Mean Corpuscular Hemoglobin 30.3 pg 27.0-33.0 [facility] ([facility] Red Cell Distribution Width 13.0 % 11.5-14.5 [facility] ([facility] Mean Corpuscular HGB Conc 33.1 g/dL 32.0-36.5 [facility] ([facility] Neutrophils % 60.2 % 36.0-66.0 [facility] ([facility] Platelet Count, Automated 329 10 150-450 [facility] ([facility] Lymph % 30.4 % 24.0-44.0 [facility] ([facility] Baso % 0.7 % 0.0-1.0 [facility] ([facility] Eos % 1.9 % 0.0-3.0 [facility] ([facility] Douglas % 6.6 % 0.0-5.0 [facility] ([facility] Immature Granulocyte % 0.2 % 0-3.0 [facility] ([facility] Nucleated Red Blood Cell % 0.0 % 0-0 MED [facility] ([facility] Neutrophils # 5.1 10 1.5-8.5 [facility] ([facility] Douglas # 0.6 10 0.0-0.8 [facility] ([facility] Eos # 0.2 10 0.0-0.5 [facility] ([facility] Lymph # 2.6 10 1.5-5.0 [facility] Baso # 0.1 10 0.0-0.2 [facility] ([facility] ID Date Data Source [id number] 09/09/2020 09:03:00 AM EST CEL[place] ([facility]) Name Value Range Interpretation Code Description Data Poornima rce(s) Supporting Document(s) sars-cov-2 positive negative Abnormal (applies to non-num dann results) Sars-cov-2 [facility]) ID Date Data Source [id number] 09/09/2020 08:01:00 AM EST [facility] Name Value Range Interpretation Code Description Data Poornima rce(s) Supporting Document(s) SARS coronavirus 2 RdRp gene [Presence] in Respiratory specimen by BHUPENDRA with probe detection Detected [facility] This lab was ordered by [facility] and reported by [facility]. ID Date Data Source [id number] 09/04/2020 12:00:00 AM EST [facility] Name Value Range Interpretation Code Description Data Poornima rce(s) Supporting Document(s) SARS coronavirus 2 RNA [Presence] in Res piratory specimen by BHUPENDRA with probe detection NEGATIVE [facility] This lab was ordered by [facility] and reported by [facility] [employer]. ID Date Data Source [id number] 08/26/2020 03:53:00 PM EST [facility] Name Value Range Interpretation Code Description Data Poornima rce(s) Supporting Document(s) SARS coronavirus 2 RdRp gene [Presence] in Respiratory specimen by BHUPENDRA with probe detection Not detected [facility] This lab was ordered by [facility] and reported by [facility]. ID Date Data Source [id number] 08/26/2020 03:48:00 PM EST [place] ([facility]) Name Value Range Interpretation Code Description Data Poornima rce(s) Supporting Document(s) sars-cov-2 negative negative normal Sars-cov-2 [facility] ([facility]) ID Date Data Source [id number] 08/23/2020 03:18:00 PM EST [facility] ([facility] Name Value Range Interpretation Code Description Data Poornima rce(s) Supporting Document(s) Bacteria identified in Urine by Culture Laboratory test result [facility] ([facility] FULL REPORT IN LAB NOTES (eCW and [facility] ). NO GROWTH ID Date Data Source [id number] 08/11/2020 10:48:00 AM EST [facility] ([facility] Name Value Range Interpretation Code Description Data Poornima rce(s) Supporting Document(s) Bacteria identified in Urine by Culture Laboratory test result [facility] ([facility] ID Date Data Source [id number] 08/11/2020 10:27:00 AM EST [facility] ([facility] Name Value Range Interpretation Code Description Data Poornima rce(s) Supporting Document(s) Color of Urine Laboratory test result [facility] ([facility] Specific gravity of Urine 1.015 MEDE NT ([facility] pH of Urine by Test strip 6.5 MEDE NT ([facility] Protein [Presence] in Urine by Test strip Laboratory test result [facility] ([facility] Appearance of Urine Laboratory test result [facility] ([facility] Leukocytes [#/area] in Urine sediment by Microscopy hi gh power field Laboratory test result [facility] ([facility] Ketones [Presence] in Urine by Test strip Laboratory test result [facility] ([facility] Bilirubin.total [Presence] in Urine by Test strip Laboratory test res ult [facility] ([facility] Glucose [Presence] in Urine Laboratory test result [facility] ([facility] Nitrite [Presence] in Urine by Test strip Laboratory test result [facility] ([facility] Urobilinogen [Mass/volume] in Urine by Test strip Laboratory test res ult [facility] ([facility] Hemoglobin [Presence] in Urine by Test strip Laboratory test result [facility] ([facility] ID Date Data Source [id number] 07/12/2020 03:41:00 PM EST [facility] ([facility] Name Value Range Interpretation Code Description Data Poornima rce(s) Supporting Document(s) Triglycerides Level 197 mg/dL [facility] ([facility] Cholesterol Level 216 mg/dL [facility] ([facility] HDL Cholesterol 63 mg/dL [facility] ([facility] LDL Cholesterol 114 mg/dL [facility] ([facility] Non-HDL-C 153 mg/dL [facility] ([facility] Cholesterol Risk Ratio 3.428 [facility] ([facility] ID Date Data Source [id number] 07/12/2020 03:41:00 PM EST [facility] ([facility] Name Value Range Interpretation Code Description Data Poornima rce(s) Supporting Document(s) Blood Urea Nitrogen 16 mg/dL 7-18 [facility] ([facility] Glucose, Fasting 77 mg/dL 70-100 [facility] ([facility] Creatinine For GFR 0.85 [...] Little GFR Left</content>
<content>ESRD GFR <15 on [employer]</content>
<content></content> Chloride Level 103 meq/L 98-107 [facility] ([facility] Potassium Serum 4.4 meq/L 3.5-5.1 [facility] ([facility] Sodium Level 138 meq/L 136-145 [facility] ([facility] Calcium Level 9.7 mg/dL 8.5-10.1 [facility] ([facility] Anion Gap 5 meq/L 8-16 [facility] ([facility] Carbon Dioxide Level 30 meq/L 21-32 [facility] ([facility] Alt/SGPT 30 U/L 12-78 [facility] ([facility] Ast/Sgot 18 U/L 7-37 [facility] ([facility] Bilirubin,Total 0.7 mg/dL 0.2-1.0 [facility] ([facility] Total Protein 6.6 GM/DL 6.4-8.2 [facility] ([facility] Alkaline Phosphatase 51 U/L 45-117 [facility] ([facility] Albumin 3.4 GM/DL 3.2-5.2 [facility] ([facility] Albumin/Globulin Ratio 1.1 1.2-2.2 [facility] ([facility] ID Date Data Source [id number] 07/12/2020 03:41:00 PM EST [facility] ([facility] Name Value Range Interpretation Code Description Data Poornima rce(s) Supporting Document(s) Neutrophils % 57.4 % 36.0-66.0 [facility] ([facility] Lymph % 34.3 % 24.0-44.0 [facility] ([facility] Eos % 1.8 % 0.0-3.0 [facility] Baso % 0.7 % 0.0-1.0 [facility] ([facility] Douglas % 5.6 % 0.0-5.0 [facility] ([facility] Lymph # 4.0 10 1.5-5.0 [facility] ([facility] Immature Granulocyte % 0.2 % 0-3.0 [facility] ([facility] Neutrophils # 6.6 10 1.5-8.5 [facility] ([facility] Eos # 0.2 10 0.0-0.5 [facility] ([facility] Douglas # 0.6 10 0.0-0.8 [facility] ([facility] Baso # 0.1 10 0.0-0.2 [facility] ([facility] ID Date Data Source [id number] 07/12/2020 03:41:00 PM EST [facility] ([facility] Name Value Range Interpretation Code Description Data Poornima rce(s) Supporting Document(s) Hemoglobin 13.3 g/dL 12.0-15.5 [facility] ([facility] Red Blood Count 4.44 10 4.00-5.40 [facility] ([facility] White Blood Count 11.5 10 4.0-10.0 [facility] ([facility] Mean Corpuscular Volume 93.7 fl 80.0-96.0 M EDENT ([facility] Hematocrit 41.6 % 36.0-47.0 [facility] ([facility] Mean Corpuscular Hemoglobin 30.0 pg 27.0-33.0 [facility] ([facility] Mean Corpuscular HGB Conc 32.0 g/dL 32.0-36.5 [facility] ([facility] Red Cell Distribution Width 12.5 % 11.5-14.5 [facility] ([facility] Platelet Count, Automated 341 10 150-450 [facility] ([facility] Nucleated Red Blood Cell % 0.0 % 0-0 [facility] ([facility] Procedure Social History Code Duration Value Status Description Data Source(s ) Smoking 08/27/2020 12:00:00 AM EST Never Smoker completed Never S moker eCW1 ([facility]) Smoking 08/11/2020 12:00:00 AM EST Patient has never smoked co mpleted Patient has never smoked [facility] ([facility] Smoking 01/13/2020 12:00:00 AM EDT Never Smoker completed Never S moker eCW1 ([facility]) Vital Signs ID Date Data Source [id number] Name Value Range Interpretation Code Description Data Source(s) Diastolic blood pressure 82 mm[Hg] 82 mm[Hg] eCW1 ([facility]) Systolic blood pressure 142 mm[Hg] 142 mm[Hg] e CW1 ([facility]) Body mass index (BMI) [Ratio] 36.02 kg/m2 36.02 kg/m2 W1 ([facility]) Body height 67 [in_i] 67 [in_i] W1 ([facility]) Body weight 230 [lb_av] 230 [lb_av] W1 ([facility]) Body mass index (BMI) [Ratio] 35.1 kg/m2 35.1 k g/m2 [facility] ([facility] [place] body weight 135 [lb_av] 135 [lb_av] MEDEN [...] k g/m2 [facility] ([facility] [place] body weight 135 [lb_av] 135 [lb_av] MEDEN [...] blood pressure 78 mm[Hg] 78 mm[Hg] eCW1 ([facility]) Systolic blood pressure 126 mm[Hg] 126 mm[Hg] e CW1 ([facility]) Body mass index (BMI) [Ratio] 34.7 kg/m2 34.7 k g/m2 W1 ([facility]) Body height 67 [in_i] 67 [in_i] W1 ([facility]) Body weight 221.6 [lb_av] 221.6 [lb_av] eCW1 ([facility]) Patient Treatment Plan of Care Planned Activity Planned Date Details Description Data Source (s) Preet (28) 0.18/0.215/0.25 MG-35 MCG 01/13/2020 12:00:00 AM EDT eCW1 ([facility])
--- OUTSIDE RECORDS SUMMARY | 2020-10-02 07:29 | CCD | Continuity of Care Document ---
Author Author Vanessa BAILEY M.D. Organization Unknown Address [address] [place] [address] Phone [phone] Care Team Providers Care City Carrier Name Role Phone [facility] Nurse Practitioners - Dermatology AUTM [phone] Problems Active Problems Provider Date Essential hypertension [...] CPT Code Status Date Vaccine Lot # [id number] Given 07/29/2019 Boostrix (Tdap) Tetnus, Diphtheria Toxoids & Acellular Pertussis [id number] Given 12/26/2003 Tetnus & Dipther ia Toxoids [...] Flow Rate 389 Estimated Peak Flow Rate [place] Body Weight 135 lb BMI (Body Mass Index) 35.1 kg/m2 07/28/2020 7:38am BP Systolic 106 mmHg BP Diastolic 67 mmHg Heart Rate 85 /min Body Temperature 97.1 F Respiratory Rate 16 /min Height 67.75 inches 5'7.75" had winter s hoes on Weight 228.38 lb O2 % BldC Oximetry 98 % Peak Expiratory Flow Rate 389 Estimated Peak Flow Rate [place] Body Weight 135 lb BMI (Body Mass Index) 35.0 kg/m2 Results Test Acquired Date Facility Test Result H/L Range Note CBC With Differential 10/01/2020 Patient Service [facility] RADIOLOGY [place], [place] [id number] [phone] White Blood Count 8.5 10 Normal 4.0-10.0 Red Blood Count 4.79 10 Normal 4.00-5.40 Hemoglobin 14.5 g/dL Normal 12.0-15.5 Hematocrit 43.8 % Normal 36.0-47.0 Mean Corpuscular Volume 91.4 fl Normal 80.0-96.0 Mean Corpuscular Hemoglobin 30.3 pg Normal 27.0-33.0 Mean Corpuscular HGB Conc 33.1 g/dL Normal 32.0-36.5 Red Cell Distribution Width 13.0 % Normal 11.5-14.5 Platelet Count, Automated 329 10 Normal 150-450 Neutrophils % 60.2 % Normal 36.0-66.0 Lymph % 30.4 % Normal 24.0-44.0 [place] % 6.6 % High 0.0-5.0 Eos % 1.9 % Normal 0.0-3.0 Baso % 0.7 % Normal 0.0-1.0 Immature Granulocyte % 0.2 % Normal 0-3.0 Nucleated Red Blood Cell % 0.0 % Normal 0-0 Neutrophils # 5.1 10 Normal 1.5-8.5 Lymph # 2.6 10 Normal 1.5-5.0 [place] # 0.6 10 Normal 0.0-0.8 Eos # 0.2 10 Normal 0.0-0.5 Baso # 0.1 10 Normal 0.0-0.2 Laboratory test finding 10/01/2020 [place] [address] [phone] Magnesium Level 2.0 mg/dL Normal 1.8-2.4 Cardiac Marker Panel 10/01/2020 [place] [address] [phone] CPK Creatine Phosphokinase 68 U/L Normal 26-19 2 CK-MB Value Mass < 1.0 NG/ML Normal <3.6 MB/CK Relative Index 1.47 Normal < Or =4 1 Troponin I < 0.02 NG/ML Normal < 0.10 2 Basic Metabolic Profile 10/01/2020 Patient Service [place], [place] [id number] [phone] Glucose, Fasting 106 mg/dL High 70-100 Blood Urea Nitrogen 16 mg/dL Normal 7-18 Creatinine For GFR 0.81 mg/dL Normal 0.55-1.30 Glomerular Filtration Rate > 60.0 Normal >58 3 Sodium Level 143 mEq/L Normal 136-145 Potassium Serum 3.9 mEq/L Normal 3.5-5.1 Chloride Level 109 mEq/L High 98-107 Carbon Dioxide Level 25 mEq/L Normal 21-32 Anion Gap 9 mEq/L Normal 8-16 Calcium Level 9.2 mg/dL Normal 8.5-10.1 Laboratory test finding 10/01/2020 [place] [address] [phone] Thyroid Stimulating Hormone 2.230 uIU/ML Normal 0. 358-3.740 Laboratory test finding 08/23/2020 [facility] [phone] Urine Culture FULL REPORT IN L <SEE NOTE> Normal 4 Ua Routine 08/11/2020 [facility] [address] [place] [address] [phone] Ua Specific [place] 1.015 Ua PH 6.5 Ua Color yellow Ua Appera clear Ua WBC neg Ua Protein trace Ua Glucose neg Ua Ketones neg Ua Bilirubin neg Ua Urobilinogen neg Ua Nitrite neg Ua Occult Blood 5-10+non hemo Complete Blood Count 07/12/2020 [place] [address] [phone] White Blood Count 11.5 10 High 4.0-10.0 [...] Differential Automated 07/12/2020 [place] [address] [phone] Neutrophils % 57.4 % Normal 36.0-66.0 Lymph % 34.3 % Normal 24.0-44.0 [place] % 5.6 % High 0.0-5.0 Eos % 1.8 % Normal 0.0-3.0 Baso % 0.7 % Normal 0.0-1.0 Immature Granulocyte % 0.2 % Normal 0-3.0 Neutrophils # 6.6 10 Normal 1.5-8.5 Lymph # 4.0 10 Normal 1.5-5.0 [place] # 0.6 10 Normal 0.0-0.8 Eos # 0.2 10 Normal 0.0-0.5 Baso # 0.1 10 Normal 0.0-0.2 Comprehensive Metabolic Profil 07/12/[address] [place] [address] [phone] Glucose, Fasting 77 mg/dL Normal 70-100 Blood Urea Nitrogen 16 mg/dL Normal 7-18 Creatinine For GFR 0.85 mg/dL Normal 0.55-1.30 Glomerular Filtration Rate > 60.0 Normal >58 5 Sodium Level 138 mEq/L Normal 136-145 Potassium [...] Low 1.2-2.2 Lipid Panel 07/12/2020 Patient Service [place], [place] [id number] [phone] Triglycerides Level 197 mg/dL High <150 Cholesterol Level 216 mg/dL High <200 HDL Cholesterol 63 mg/dL Normal >40 LDL Cholesterol 114 mg/dL High <100 Non-HDL-C 153 mg/dL Normal Cholesterol Risk Ratio 3.428 Normal <5 1 DIAGNOSIS CRITERIA MMB ng/ml Relative Index (RI) NON-AMI < or = 5 N/A ROGEL ZONE > 5 < or = 4 AMI > 5 > 4 2 Troponin I Reference Interva l for [facility] LOCI: 99th Percentile= 0.00-0.045 ng/ml Risk Stratification: <= 0.10 ng/ml Decreased Risk for Adverse Clinical Events. 0.10-1.50 ng/ml Increased Risk for Adv erse Clinical Events. Evaluation of additional criterion and/or repeat testing in 2-6 hours is suggested to rule out myocardial damage. >= 1.50 ng/ml Indicative of Myocardial Injury. 3 Units are mL/min/1.73 m2 Chronic Kidney Disease Staging per NKF: Stage I & II GFR >=60 Normal to Mildly Decreased Stage III GFR 30-59 Moderately Decreased Stage IV GFR 15-29 Severely Decreased Stage V GFR <15 Very Little GFR Left ESRD GFR <15 on JOURNEY LINEMAN 4 FULL REPORT IN LAB NOTES (eC W and [facility]). NO GROWTH 5 Units are mL/min/1.73 m2 Chronic Kidney Disease Staging per NKF: Stage I & II GFR >=60 Normal to Mildly Decreased Stage III GFR 30-59 Moderately Decreased Stage IV GFR 15-29 Severely Decreased Stage V GFR <15 Very Little GFR Left ESRD GFR <15 on JOURNEY LINEMAN Procedures Date Code Description Status 12/19/2019 [id number] Mammogram Completed Medical Devices Description No Information [...] Dr Reason for Referral Status Appt Date [facility] Nurse Practitioners raised lesion on septum of nose Cl osed 08/09/2020 [address] [facility] [address], [address] [place] [address] [phone]
[2020-10-02 07:58] VITALS: BP 117/75
--- OUTSIDE RECORDS SUMMARY | 2020-10-02 07:58 | CCD ---
Author Author [facility] Organization [facility] Address Unknown Phone Unavailable Care Team Providers Care Dolly Driver Name Role Phone Elie Rae MD Unavailable [...] is protected by Article 27-F of the [facility] Public Health law. If you continue you may have access to information: Regarding HIV / AIDS; Provided by facilities licensed or operated by the [facility] Office of Mental Health; or Provided by the [facility] Office for People With Developmental Disabilities. If such information is present, then the following [facility] mandated warning applies: This information [...] law may result in a fine or long term sentence or both. A general authorization for the release of medical or other information is NOT sufficient authorization for further disc losure. Allergies and Adverse Reactions Type Description Substance Reaction Status Data Source(s ) Allergy to substance Allergy to substance Allergy to substance [facility] ([facility]) Allergy to substance Allergy to substance Allergy to substance [facility] ([facility]) Family History Family Member Name Family Member [...] Data Source(s ) Raymond Herzog MD: [address] [place] [address], Ph. Attender: Raymond Herzog MD [facility] Medical 09/09/2020 12:00:00 AM EST [facility] ([facility]) Office Visit, Est Pt., Level 4 PC [address] [place] [address] 09/01/2020 12:00:00 AM EST eCW1 ([facility]) Raymond Herzog MD: [address] [place] [address], Ph. Attender: Raymond Herzog MD [facility] Medical 08/26/2020 12:00:00 AM EST [facility] ([facility]) Raymond Herzog MD: [address] [place] [phone], Ph. Attender: Raymond Herzog MD [facility] Medical 08/26/2020 12:00:00 AM EST [facility] ([facility]) Outpatient Attender: Jeannine Rae MD Main Office 08/11/2020 09:15:0 0 AM EST [facility] ([facility] Outpatient Attender: Jeannine Rae MD Main Office 07/28/2020 06:30:0 0 AM EST [facility] ([facility] Outpatient [address] [place] [phone] 01/13/2020 12:00:00 AM EDT eCW1 ([facility]) Immunizations Vaccine Date Status Description Data Source(s) INFLUENZA VIRUS VACCINE QUADRIVAL [id number](6 MOS AND UP)/PF 05/29/2020 12:00:00 AM EDT [...] TABLET BY MOUTH EVERY DAY SOLD: 08/31/2020 [facility] 0.18/0.215/0.25 mg-35 mcg (28) 03/01/2020 12:00:00 AM EDT ta blet 84 TAKE ONE TABLET BY MOUTH EVERY DAY TAKE ONE TABLET BY MOUTH EVERY DAY SOLD: 03/03/2020 [facility] TriNessa (28) 0.18/0.215/0.25 MG-35 MCG UNK 01/13/2020 12: 00:00 AM EDT 1.0 {tablet} suspended TriNessa (28) 0.18/0. 215/0.25 MG-35 MCG [facility] TriNessa (28) 0.18/0.215/0.25 MG-35 MCG UNK 01/13/2020 12: 00:00 AM EDT 1.0 {tablet} active TriNessa (28) 0.18/0.21 5/0.25 MG-35 MCG eCW1 ([facility]) 0.18/0.215/0.25 mg-35 mcg (28) 12/10/2019 12:00:00 [...] TriNessa (28) 0.18/0.21 5/0.25 MG-35 MCG eCW1 ([facility]) TriNessa (28) 0.18/0.215/0.25 MG-35 MCG UNK 09/21/2019 12: 00:00 AM EST 1.0 {tablet} active TriNessa (28) 0.18/0.21 5/0.25 MG-35 MCG eCW1 ([facility]) 10 mg 09/08/2019 12:00:00 AM EST [...] type / Coverage type Policy ID Covered libertarian ID Covered libertarian's relationship to nelson Policy Nelson Plan Information [facility]MR [facility] [id number] SP [id number] [facility] [id number] SP [id number] Umr/c/[employer] (HMO) [id number] Self [id number] UMR [facility] [id number] SP [id number] Umr Commercial [id number] Self [id number] Umr [employer] [id number] Self [id number] Umr[employer] (HMO) [id number] Self [id number] [employer] [id number] SP [id number] [employer] [id number] SP [id number] [employer] [id number] SP [id number] [employer] (H[employer]) [id number] Se lf [id number] [employer] [id number] Self [id number] [employer] [id number] Self [id number] [employer] [id number] Self [id number] [employer] [id number] Self [id number] [employer] Self [employer] Self [id number] Problems, Conditions, and Diagnoses Code Display Name Description Problem Type Effective Dates Data Source(s) N20.0 Nephrolithiasis Nephrolithiasis Problem 09/01/2020 12:0 0:00 AM EST eCW1 ([facility]) Surgeries/Procedures Procedure Description Date Indications Data Source(s) Mammogram 12/19/2019 12:00:00 AM EDT M [facility] ([facility] Results ID Date Data Source [id number] 10/01/2020 09:23:00 AM EST [facility] ([facility] Name Value Range Interpretation Code Description Data Poornima rce(s) Supporting Document(s) Thyrotropin [Units/volume] in Serum or Plasma 2.230 uIU/ML 0.358-3.74 0 [facility] ([facility] ID Date Data Source [id number] 10/01/2020 09:23:00 AM EST [facility] ([facility] [...] Little GFR Left</content>
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
<content></content> Chloride Level 109 meq/L 98-107 [facility] ([facility] Potassium Serum 3.9 meq/L 3.5-5.1 [facility] ([facility] Carbon Dioxide Level 25 meq/L 21-32 [facility] ([facility] Anion Gap 9 meq/L 8-16 [facility] ([facility] Calcium Level 9.2 mg/dL 8.5-10.1 [facility] ([facility] ID Date Data Source [id number] 10/01/2020 09:23:00 AM EST [facility] ([facility] [...] <content>Troponin I Reference Interval f or Siemens [place] LOCI:</content>
<content></content>
<content>99th Percentile= 0.00-0.045 ng/ml</content>
<content></content>
[...] [facility] ID Date Data Source [id number] 10/01/2020 09:23:00 AM EST [facility] ([facility] Name Value Range Interpretation Code Description Data Poornima rce(s) Supporting Document(s) Magnesium [Mass/volume] in Serum or Plasma 2.0 mg/dL 1.8-2.4 [facility] ([facility] ID Date Data Source [id number] 10/01/2020 09:23:00 AM EST [facility] ([facility] Name Value Range Interpretation Code Description Data Poornima rce(s) Supporting Document(s) White Blood Count 8.5 10 4.0-10.0 [facility] ([facility] Red Blood Count 4.79 10 4.00-5.40 [facility] ([facility] Hemoglobin 14.5 g/dL 12.0-15.5 [...] % 0.0-3.0 [facility] ([facility] [place] % 6.6 % 0.0-5.0 [facility] Immature Granulocyte % 0.2 % 0-3.0 [facility] ([facility] Nucleated Red Blood Cell % 0.0 % 0-0 MED [facility] ([facility] Neutrophils # 5.1 10 1.5-8.5 [facility] ([facility] [place] # 0.6 10 0.0-0.8 [facility] Eos # 0.2 10 0.0-0.5 [facility] Lymph # 2.6 10 1.5-5.0 [facility] Baso # 0.1 10 0.0-0.2 [facility] ([facility] ID Date Data Source [id number] 09/09/2020 09:03:00 AM EST [place] ([facility]) Name Value Range Interpretation Code Description Data Poornima rce(s) Supporting Document(s) sars-cov-2 positive negative Abnormal (applies to non-num dann results) Sars-cov-2 [facility]) ID Date Data Source [id number] 09/09/2020 08:01:00 AM EST [facility] Name Value Range Interpretation Code Description Data Poornima rce(s) Supporting Document(s) SARS coronavirus 2 RdRp gene [Presence] in Respiratory specimen by BHUPENDRA with probe detection Detected [facility] This lab was ordered by [facility] and reported by [facility]. ID Date Data Source [id number] 09/04/2020 12:00:00 AM EST [facility] Name Value Range Interpretation Code Description Data Poornima rce(s) Supporting Document(s) SARS coronavirus 2 RNA [Presence] in Res piratory specimen by BHUPENDRA with probe detection NEGATIVE [facility] This lab was ordered by [facility] and reported by [facility]. ID Date Data Source [id number] 08/26/2020 03:53:00 PM EST [facility] Name Value Range Interpretation Code Description Data Poornima rce(s) Supporting Document(s) SARS coronavirus 2 RdRp gene [Presence] in Respiratory specimen by BHUPENDRA with probe detection Not detected [facility] This lab was ordered by [facility] and reported by [facility]. ID Date Data Source [id number] 08/26/2020 03:48:00 PM EST [place] ([facility]) Name Value Range Interpretation Code Description Data Poornima rce(s) Supporting Document(s) sars-cov-2 negative negative normal Sars-cov-2 [facility] ([facility]) ID Date Data Source [id number] 08/23/2020 03:18:00 PM EST [facility] ([facility] Name Value Range Interpretation Code Description Data Poornima rce(s) Supporting Document(s) Bacteria identified in Urine by Culture Laboratory test result [facility] ([facility] FULL REPORT IN LAB NOTES (eCW and [facility] ). NO GROWTH ID Date Data Source [id number] 08/11/2020 10:48:00 AM EST [facility] ([facility] Name Value Range Interpretation Code Description Data Poornima rce(s) Supporting Document(s) Bacteria identified in Urine by Culture Laboratory test result [facility] ([facility] ID Date Data Source [id number] 08/11/2020 10:27:00 AM EST [facility] ([facility] [...] [facility] ID Date Data Source [id number] 07/12/2020 03:41:00 PM EST [facility] ([facility] [...] [facility] ID Date Data Source [id number] 07/12/2020 03:41:00 PM EST [facility] ([facility] [...] Little GFR Left</content>
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
<content></content> Chloride Level 103 meq/L 98-107 [facility] [...] GM/DL 6.4-8.2 [facility] ([facility] Alkaline Phosphatase 51 U/L 45-117 [facility] ([facility] Albumin 3.4 GM/DL 3.2-5.2 [facility] ([facility] Albumin/Globulin Ratio 1.1 1.2-2.2 [facility] ([facility] ID Date Data Source [id number] 07/12/2020 03:41:00 PM EST [facility] ([facility] Name Value Range Interpretation Code Description Data Poornima rce(s) Supporting Document(s) Neutrophils % 57.4 % 36.0-66.0 [facility] ([facility] Lymph % 34.3 % 24.0-44.0 [facility] Eos % 1.8 % 0.0-3.0 [facility] Baso % 0.7 % 0.0-1.0 [facility] [place] % 5.6 % 0.0-5.0 [facility] Lymph # 4.0 10 1.5-5.0 [facility] ([facility] Immature Granulocyte % 0.2 % 0-3.0 [facility] ([facility] Neutrophils # 6.6 10 1.5-8.5 [facility] ([facility] Eos # 0.2 10 0.0-0.5 [facility] [place] # 0.6 10 0.0-0.8 [facility] ([facility] Baso # 0.1 10 0.0-0.2 [facility] ([facility] ID Date Data Source [id number] 07/12/2020 03:41:00 PM EST [facility] ([facility] [...] Never Smoker completed Never S moker [facility]CW1 ([facility]) Smoking 08/11/2020 12:00:00 AM EST Patient has never smoked co mpleted Patient has never smoked [facility] ([facility] Smoking 01/13/2020 12:00:00 AM EDT Never Smoker completed Never S moker eCW1 ([facility]) Vital Signs ID Date Data Source [id number] Name Value Range Interpretation Code Description Data Source(s) Diastolic blood pressure 82 mm[Hg] 82 mm[Hg] eCW1 ([facility]) Systolic blood pressure 142 mm[Hg] 142 mm[Hg] e CW1 ([facility]) Body mass index (BMI) [Ratio] 36.02 kg/m2 36.02 kg/m2 W1 ([facility]) Body height 67 [in_i] 67 [in_i] W1 ([facility]) Body weight 230 [lb_av] 230 [lb_av] W1 ([facility]) Body mass index (BMI) [Ratio] 35.1 kg/m2 35.1 k g/m2 [facility] ([facility] [place] body weight 135 [lb_av] 135 [lb_av] MEDEN [...] k g/m2 [facility] ([facility] [place] body weight 135 [lb_av] 135 [lb_av] MEDEN [...] blood pressure 78 mm[Hg] 78 mm[Hg] eCW1 ([facility]) Systolic blood pressure 126 mm[Hg] 126 mm[Hg] e CW1 ([facility]) Body mass index (BMI) [Ratio] 34.7 kg/m2 34.7 k g/m2 W1 ([facility]) Body height 67 [in_i] 67 [in_i] W1 ([facility]) Body weight 221.6 [lb_av] 221.6 [lb_av] eCW1 ([facility]) Patient Treatment Plan of Care Planned Activity Planned Date Details Description Data Source (s) Preet (28) 0.18/0.215/0.25 MG-35 MCG 01/13/2020 12:00:00 AM EDT eCW1 ([facility])
--- NOTE | 2020-10-03 20:36 | ECGEPIP ---
[facility] - ED Test Date: 2020-10-02 Pat Name: KRISTIE WOODALL Department: Room: - Gender: Female Squirrel Man: TC : 1975 Requested By: Barber Mcdonald Order Number: [id number] Reading MD: Danielle Gant Measurements Intervals [place] Rate: 67 P: 46 NH: 130 QRS: 30 QRSD: 90 T: 17 QT: 377 QTc: 401 Interpretive Statements SINUS RHYTHM PRIOR ATRIAL FIBRILLATION 10/01/20 Electronically Signed on 10-03-2020 20:36:25 EST by Danielle Gant
== END 2020-10-02 08:00 | disposition home or self-care (01) ==
LOC: M ED 07:24
DX: I48.91 Unspecified atrial fibrillation (principal); I10 Essential (primary) hypertension; Z79.899 Other long term (current) drug therapy; Z79.3 Long term (current) use of hormonal contraceptives

== ENCOUNTER → 2020-12-07 | Outpatient (CLI) | payer OTHER ==
--- NOTE | 2020-12-07 14:31 | REP ---
INDICATION: LEFT THIGH PAIN. COMPARISON: None. TECHNIQUE: Multiple ultrasonographic images of the deep venous structures of the left thigh were obtained from the common femoral vein to the popliteal vein along with Doppler interrogation and color flow Doppler images. FINDINGS: There is no abnormal echogenic material seen within any of the visualized deep venous structures that would suggest acute thrombosis. Coaptation is unremarkable throughout. Doppler interrogation shows an expected response to respiratory variability and augmentation. The color flow images show what appears to be a normal vascular pattern throughout. IMPRESSION: There is no ultrasonographic evidence of deep venous thrombosis involving any of the visualized deep venous structures of the left thigh, as described above. <Electronically signed by Edmund Gutierrez > 12/07/20 [id number]
== END ==
LOC: M RAD 13:48
PROVIDERS: ATTEND Family Medicine
DX: M79.605 Pain in left leg (principal)

== ENCOUNTER → 2021-01-31 | Outpatient (REF) | payer OTHER | LOC: M SFHCWAGY 18:52 | PROVIDERS: ATTEND Specialist | DX: Z01.419 Encounter for gynecological examination (general) (routine) without abnormal findings (principal) | CPT/HCPCS: 87624; G0123 ==

== ENCOUNTER → 2021-02-18 | Outpatient (CLI) | payer OTHER ==
--- NOTE | 2021-02-18 10:07 | REPMRS ---
Patient History The patient states she had a clinical breast exam in January 2021. Patient is nulliparous. Family history of unknown cancer in mother, endometrial cancer in paternal aunt. Took hormonal contraceptives for 22 years. Patient states no breast complaints today. Patient has signed MRS History Sheet. Digital Woman Screen Mammo: February 18, 2021 - Exam #: [id number] Bilateral CC and MLO view(s) were taken. Technologist: RT Jocelin Prior study comparison: January 15, 2020, bilateral digital woman screen mammo performed at [facility]. December 23, 2018, bilateral digital mammo screening bilat, performed at [facility]. December 05, 2017, bilateral digital mammo screening bilat, performed at [facility]. FINDINGS: The breast tissue is almost entirely fat. The Volpara volumetric breast density category is: A. There has been no change in the appearance of the mammogram from the prior studies. There is no interval development of dominant mass, architectural distortion, or grouped microcalcification typical of malignancy. 3-D tomosynthesis shows no additional findings. Assessment: BI-RADS/ACR category 1 mammogram. Negative Mammogram. Recommendation Routine screening mammogram of both breasts in 1 year (for women over age 40). [facility] Lifetime Breast Cancer RIsk is estimated at 14.0 %. This mammogram was interpreted with the aid of an FDA-approved computer-aided dectection system. Electronically Signed By: Gil Conley MD 02/18/21 1007
== END ==
LOC: M WHC 08:50
PROVIDERS: ATTEND Specialist
DX: Z12.31 Encounter for screening mammogram for malignant neoplasm of breast (principal); Z80.8 Family history of malignant neoplasm of other organs or systems

== ENCOUNTER → 2021-09-12 | Outpatient (CLI) | payer OTHER ==
[2021-09-12 17:27] LABS: BASO # 0.1 10^3/uL (0.0-0.2); BASO % 0.5 % (0.0-1.0); EOS # 0.2 10^3/uL (0.0-0.5); EOS % 1.6 % (0.0-3.0); HEMATOCRIT 37.9 % (36.0-47.0); HEMOGLOBIN 12.6 g/dl (12.0-15.5); LYMPH # 3.2 10^3/uL (1.5-5.0); LYMPH % 29.1 % (24.0-44.0); MEAN CORPUSCULAR HEMOGLOBIN 30.8 pg (27.0-33.0); MEAN CORPUSCULAR HGB CONC 33.2 g/dl (32.0-36.5); MEAN CORPUSCULAR VOLUME 92.7 fl (80.0-96.0); MONO # 0.6 10^3/uL (0.0-0.8); NEUTROPHILS # 6.9 10^3/uL (1.5-8.5); NEUTROPHILS % 63.5 % (36.0-66.0); PLATELET COUNT, AUTOMATED 335 10^3/uL (150-450); RED BLOOD COUNT 4.09 10^6/uL (4.00-5.40); WHITE BLOOD COUNT 10.9 10^3/uL (4.0-10.0)
[2021-09-12 18:32] LABS: HEPATITIS C VIRUS ABY INDEX < 0.0 INDEX (<0.8); HIV 1&2 SCREEN CENTAUR NEGATIVE (NEGATIVE)
[2021-09-12 19:01] LABS: GC DNA AMPLIFICATION NEGATIVE (NEGATIVE)
== END ==
LOC: M PLALAB 14:51
PROVIDERS: ATTEND Specialist
DX: Z36.9 Encounter for antenatal screening, unspecified (principal); Z3A.00 Weeks of gestation of pregnancy not specified

== ENCOUNTER → 2021-11-28 | Outpatient (CLI) | payer OTHER | LOC: M WHC 15:02 | PROVIDERS: ATTEND Advanced Practice Midwife | DX: Z36.3 Encounter for antenatal screening for malformations (principal); O09.512 Supervision of elderly primigravida, second trimester; Z3A.20 20 weeks gestation of pregnancy ==

== ENCOUNTER → 2021-12-26 | Outpatient (CLI) | payer OTHER | LOC: M WHC 15:15 | PROVIDERS: ATTEND Obstetrics & Gynecology | DX: O09.512 Supervision of elderly primigravida, second trimester (principal); Z3A.25 25 weeks gestation of pregnancy ==

== ENCOUNTER → 2022-01-13 | Outpatient (CLI) | payer OTHER ==
[2022-01-13 13:41] LABS: HEMOGLOBIN 11.9 g/dl (12.0-15.5); MEAN CORPUSCULAR HGB CONC 33.1 g/dl (32.0-36.5); MEAN CORPUSCULAR VOLUME 93.8 fl (80.0-96.0); PLATELET COUNT, AUTOMATED 286 10^3/uL (150-450); RED BLOOD COUNT 3.84 10^6/uL (4.00-5.40); WHITE BLOOD COUNT 10.4 10^3/uL (4.0-10.0)
[2022-01-13 15:40] LABS: GC DNA AMPLIFICATION NEGATIVE (NEGATIVE)
== END ==
LOC: M PLALAB 10:19
PROVIDERS: ATTEND Specialist
DX: O09.512 Supervision of elderly primigravida, second trimester (principal)

== ENCOUNTER → 2022-03-16 | Outpatient (REF) | payer OTHER | LOC: M SFHCWAGY 13:23 | PROVIDERS: ATTEND Advanced Practice Midwife | DX: Z36.85 Encounter for antenatal screening for Streptococcus B (principal) ==

== ENCOUNTER 2022-04-04 08:05 | Inpatient (IN) | payer OTHER ==
[2022-04-04] VITALS (21 sets, daily range): BP systolic 113–210; BP diastolic 55–98
[~2022-04-04] VITALS: Ht 170.2 cm; Wt 119.7 kg
[2022-04-04] MEDS ORDERED: OXYTOCIN DRIP 30 UNITS in IV 1 EA IV PRN ×4 (08:35)
[2022-04-04] MEDS ORDERED: CARBOPROST TROMETHAMINE 250 MCG/ML AMP IM PRN (08:35)
[2022-04-04] MEDS ORDERED: TRANEXAMIC ACID INJection 1,000 MG in NS 100 ML IV PRN (08:35)
[2022-04-04] MEDS ORDERED: LACTATED RINGER'S 1000 ML IV PRN (08:35)
[2022-04-04] MEDS ORDERED: METHYLERGONOVINE MALEATE 0.2 MG/ML VIAL (J2210) IM PRN (08:35)
[2022-04-04] MEDS ORDERED: ASPI81CH33 PO (08:52)
[2022-04-04] MEDS ORDERED: PRENTAB9 PO (08:52)
[2022-04-04] MEDS ORDERED: LABE200T5 PO (08:53)
[2022-04-04] MEDS ORDERED: HOME MED LIST COMPLETE! XX SCH (09:00)
[2022-04-04 10:07] LABS: HEMATOCRIT 34.3 % (36.0-47.0); HEMOGLOBIN 11.5 g/dl (12.0-15.5); MEAN CORPUSCULAR HEMOGLOBIN 31.5 pg (27.0-33.0); MEAN CORPUSCULAR HGB CONC 33.5 g/dl (32.0-36.5); PLATELET COUNT, AUTOMATED 219 10^3/uL (150-450); RED BLOOD COUNT 3.65 10^6/uL (4.00-5.40); WHITE BLOOD COUNT 8.1 10^3/uL (4.0-10.0)
[2022-04-04 10:47] LABS: ALBUMIN 2.4 GM/DL (3.2-5.2); ALT/SGPT 34 U/L (12-78); BILIRUBIN,TOTAL 0.6 MG/DL (0.2-1.0); BLOOD UREA NITROGEN 8 MG/DL (7-18); CALCIUM LEVEL 9.6 MG/DL (8.5-10.1); CARBON DIOXIDE LEVEL 23 MEQ/L (21-32); CHLORIDE LEVEL 108 MEQ/L (98-107); CREATININE FOR GFR 0.59 MG/DL (0.55-1.30); GLOMERULAR FILTRATION RATE > 60.0 (>58); GLUCOSE, FASTING 99 MG/DL (70-100); POTASSIUM SERUM 3.7 MEQ/L (3.5-5.1); SODIUM LEVEL 138 MEQ/L (136-145); TOTAL PROTEIN 5.5 GM/DL (6.4-8.2)
[2022-04-04] MEDS ORDERED: miSOPROStol 50MCG 1/2 TABLET PO SCH (11:00)
[2022-04-04] MEDS ORDERED: miSOPROStol 25MCG 1/4 TABLET PO ONE ×2 (15:00→19:20)
[2022-04-04] MEDS: LABETALOL 200 MG TAB PO SCH (21:24)
[2022-04-04] MEDS ORDERED: miSOPROStol 50MCG 1/2 TABLET PO ONE (23:45)
[2022-04-05] VITALS (36 sets, daily range): BP systolic 113–185; BP diastolic 55–86
[2022-04-05] MEDS: LABETALOL 200 MG TAB PO SCH ×2 (09:09→20:58)
[2022-04-05] MEDS ORDERED: miSOPROStol 50MCG 1/2 TABLET PO ONE ×2 (09:15→12:50)
[2022-04-05] MEDS: LR 1,000 ML IV SCH ×2 (14:13→23:07)
[2022-04-05] MEDS: OXYTOCIN DRIP 30 UNITS in IV 1 EA IV SCH (14:13)
[2022-04-05] MEDS ORDERED: PENICILLIN G POTASSIUM IV 5 MU in D5W MINI-BAG PLUS 100 ML IV STA (18:31)
[2022-04-05] MEDS: PENICILLIN G POTASSIUM IV 2.5 MU in IV 1 EA IV SCH (23:07)
[2022-04-06] VITALS (59 sets, daily range): BP systolic 107–177; BP diastolic 54–85
[2022-04-06] MEDS: PENICILLIN G POTASSIUM IV 2.5 MU in IV 1 EA IV SCH ×5 (03:23→18:16)
[2022-04-06] MEDS: LR 1,000 ML IV SCH ×3 (07:06→18:16)
[2022-04-06] MEDS: LABETALOL 200 MG TAB PO SCH ×2 (08:38→21:02)
[2022-04-06] MEDS ORDERED: ePHEDrine SULFATE 25 MG/5 ML(5MG/ML) SYRINGE IVP PRN (10:45)
[2022-04-06] MEDS ORDERED: diphenhydrAMINE 50MG/ML VIAL (J1200) IV PRN (10:45)
[2022-04-06] MEDS ORDERED: ONDANSETRON 4MG 2ML VIAL IV PRN (10:45)
[2022-04-06] MEDS ORDERED: EPIDURAL/PCA KEYS XX PRN (10:45)
[2022-04-06] MEDS ORDERED: LR 500 ML IV PRN (10:45)
[2022-04-06] MEDS ORDERED: NALOXONE INJ 0.4MG/1ML VIAL (J2310 PER 1MG) IV PRN (10:45)
[2022-04-06] MEDS ORDERED: FENTANYL 2MCG/ML ROPIVACAINE 0.2% IN 0.9% NACL 100ML IVBAG As Ordered ONE (10:47)
[2022-04-06] MEDS: FENTANYL/ROPIVACAINE/NACL BAG 100 ML EPIDURAL SCH ×2 (11:15→20:34)
[2022-04-06] MEDS: OXYTOCIN DRIP 30 UNITS in IV 1 EA IV SCH (18:16)
[2022-04-06] MEDS ORDERED: ceFAZolin SOD 2 GM in IV 1 EA IV ONE (23:35)
[2022-04-06] MEDS ORDERED: BICITRA 30ML SOLN UDC PO ONE (23:35)
[2022-04-06] MEDS ORDERED: AZITHROMYCIN INJ 500 MG, VIAL MATE ADAPTER 1 EACH in NS 250 ML IV ONE (23:35)
[2022-04-06] MEDS ORDERED: LIDOCAINE 2% W/EPINEPHRINE 20ML VIAL **PRES FREE As Ordered ONE (23:37)
[2022-04-06] MEDS ORDERED: OXYTOCIN 30 UNITS IN 0.9% NaCl 500ML IV BAG (J2590) As Ordered ONE (23:38)
[2022-04-06] MEDS ORDERED: ceFAZolin 2 GM/D5W 50 ML IV BAG (J0690 PER 500MG) As Ordered ONE (23:39)
[2022-04-06] MEDS ORDERED: AZITHROMYCIN INJ 500MG VIAL As Ordered ONE (23:40)
[2022-04-07] VITALS (29 sets, daily range): BP systolic 97–132; BP diastolic 51–66
[2022-04-07] MEDS ORDERED: MORPHINE PRES-FREE INJ 10 MG/10 ML VIAL As Ordered ONE (00:12)
[2022-04-07] MEDS ORDERED: KETOROLAC 60MG 2ML VIAL As Ordered ONE (00:12)
[2022-04-07] MEDS ORDERED: ONDANSETRON 4MG 2ML VIAL As Ordered ONE (00:12)
[2022-04-07 00:37] LABS: CORD GAS ABE V -1.6; CORD GAS HCO3 V 23.9 MEQ/L; CORD GAS O2 SAT V 79.7 %; CORD GAS PCO2 V 43.3 mmHg; CORD GAS PH V 7.36 UNITS; CORD GAS PO2 V 33.6 mmHg; CORD GAS SBC V 22.7 MEQ/L; CORD GAS TCO2 V 25.2 MEQ/L
[2022-04-07] MEDS ORDERED: SIMETHICONE 80MG CHEW TAB PO PRN (00:50)
[2022-04-07] MEDS ORDERED: DOCUSATE SODIUM 100MG CAPSULE PO PRN (00:50)
[2022-04-07] MEDS ORDERED: RHOGAM 300 MCG (1500 IU) INJ (J2790) IM SCH (00:50)
[2022-04-07] MEDS ORDERED: ONDANSETRON 4MG 2ML VIAL IV PRN (00:50)
[2022-04-07] MEDS ORDERED: PERCOCET 5MG/325MG TAB PO PRN ×2 (00:50)
[2022-04-07] MEDS ORDERED: OXYTOCIN DRIP 30 UNITS in IV 1 EA IV SCH (00:50)
[2022-04-07] MEDS: LR 1,000 ML IV SCH ×3 (03:52→16:50)
[2022-04-07] MEDS: KETOROLAC 30 MG/ML 1ML VIAL IV SCH ×3 (06:17→19:23)
[2022-04-07] MEDS: PRENATAL VITAMINS CHEWABLE TABLET PO SCH (08:29)
[2022-04-07] MEDS: LABETALOL 200 MG TAB PO SCH ×2 (08:55→17:03)
[2022-04-08] MEDS: LR 1,000 ML IV SCH ×2 (00:50→08:50)
[2022-04-08 02:00] VITALS: BP 141/65
[2022-04-08] MEDS: IBUPROFEN 800 MG TAB PO SCH ×3 (02:39→18:27)
[2022-04-08 06:00] VITALS: BP 135/63
[2022-04-08 07:54] LABS: MEAN CORPUSCULAR HGB CONC 32.3 g/dl (32.0-36.5); PLATELET COUNT, AUTOMATED 192 10^3/uL (150-450); RED BLOOD COUNT 3.23 10^6/uL (4.00-5.40); WHITE BLOOD COUNT 11.3 10^3/uL (4.0-10.0)
[2022-04-08 10:00] VITALS: BP 124/66
[2022-04-08] MEDS: LABETALOL 200 MG TAB PO SCH ×2 (10:02→20:54)
[2022-04-08] MEDS: PRENATAL VITAMINS CHEWABLE TABLET PO SCH (10:02)
[2022-04-08 14:32] VITALS: BP 155/69
[2022-04-08 18:00] VITALS: BP 148/72
[2022-04-08 19:13] VITALS: BP 145/67
[2022-04-09 02:00] VITALS: BP 140/70
[2022-04-09] MEDS: IBUPROFEN 800 MG TAB PO SCH ×3 (03:10→19:08)
[2022-04-09 06:00] VITALS: BP 139/64
[2022-04-09] MEDS ORDERED: OXYC1TAB23 PO (07:08)
[2022-04-09] MEDS ORDERED: IBUP80TA PO (07:08)
[2022-04-09] MEDS ORDERED: MEASLES,MUMPS,RUBELLA VACCINE INJ (MMR-II) (90707) SC.IMMUN ONE (09:00)
[2022-04-09] MEDS: LABETALOL 200 MG TAB PO SCH ×2 (09:41→21:29)
[2022-04-09] MEDS: PRENATAL VITAMINS CHEWABLE TABLET PO SCH (09:41)
[2022-04-09 18:00] VITALS: BP 113/73
[2022-04-10] MEDS: IBUPROFEN 800 MG TAB PO SCH ×2 (03:00→11:00)
[2022-04-10 06:00] VITALS: BP 146/67
[2022-04-10 09:10] VITALS: BP 156/71
[2022-04-10] MEDS: PRENATAL VITAMINS CHEWABLE TABLET PO SCH (09:11)
[2022-04-10 09:12] VITALS: BP 156/71
[2022-04-10] MEDS: LABETALOL 200 MG TAB PO SCH (09:12)
[2022-04-10 09:57] LABS: HEMATOCRIT 30.2 % (36.0-47.0); HEMOGLOBIN 10.1 g/dl (12.0-15.5); MEAN CORPUSCULAR HEMOGLOBIN 31.9 pg (27.0-33.0); MEAN CORPUSCULAR HGB CONC 33.4 g/dl (32.0-36.5); MEAN CORPUSCULAR VOLUME 95.3 fl (80.0-96.0); PLATELET COUNT, AUTOMATED 258 10^3/uL (150-450); RED BLOOD COUNT 3.17 10^6/uL (4.00-5.40); WHITE BLOOD COUNT 8.3 10^3/uL (4.0-10.0)
[2022-04-10 10:32] LABS: ALT/SGPT 59 U/L (12-78); BILIRUBIN,TOTAL 0.5 MG/DL (0.2-1.0); GLOMERULAR FILTRATION RATE > 60.0 (>58); LDH LACTATE DEHYDROGENASE 224 U/L (84-246); URIC ACID 4.4 MG/DL (2.6-6.0)
[2022-04-10 11:33] VITALS: BP 128/60
[2022-04-10] MEDS ORDERED: LABE20TAB PO (11:45)
== END 2022-04-10 14:40 | disposition home or self-care (01) | DRG 540 ==
LOC: M LDI 08:05 → M OBS 04-07 02:43
PROVIDERS: ADMIT Obstetrics & Gynecology; ATTEND Advanced Practice Midwife
PROC: 3E0P7GC Introduction of Other Therapeutic Substance into Female Reproductive, Via Natural or Artificial Opening (ICD-10-PCS; 2022-04-04)
PROC: 10D00Z1 Extraction of Products of Conception, Low, Open Approach (ICD-10-PCS; principal; 2022-04-07)
DX: O10.02 Pre-existing essential hypertension complicating childbirth (principal); O99.824 Streptococcus B carrier state complicating childbirth; O32.4XX0 Maternal care for high head at term, not applicable or unspecified; O69.81X0 Labor and delivery complicated by cord around neck, without compression, not applicable or unspecified; Z37.0 Single live birth; Z3A.38 38 weeks gestation of pregnancy; Z86.16 Personal history of COVID-19; Z79.82 Long term (current) use of aspirin; Z79.899 Other long term (current) drug therapy

== ENCOUNTER → 2022-06-13 | Outpatient (CLI) | payer OTHER ==
[~2022-06-13] MED LIST changes: +ASPI81CH33 PO; +IBUP80TA PO; +LABE200T5 PO; +LABE20TAB PO; +OXYC1TAB23 PO; +PRENTAB9 PO
== END ==
LOC: M WHC 14:53
PROVIDERS: ATTEND Specialist
DX: Z12.31 Encounter for screening mammogram for malignant neoplasm of breast (principal); R92.8 Other abnormal and inconclusive findings on diagnostic imaging of breast

== ENCOUNTER → 2022-07-06 | Outpatient (CLI) | payer OTHER | LOC: M WHC 15:24 | PROVIDERS: ATTEND Specialist | DX: Z12.31 Encounter for screening mammogram for malignant neoplasm of breast (principal) | CPT/HCPCS: 77065; G0279 ==

== ENCOUNTER → 2022-07-28 | Outpatient (CLI) | payer OTHER ==
[2022-07-28 15:39] LABS: HEMATOCRIT 44.7 % (36.0-47.0); HEMOGLOBIN 14.6 g/dl (12.0-15.5); MEAN CORPUSCULAR HGB CONC 32.7 g/dl (32.0-36.5); MEAN CORPUSCULAR VOLUME 91.8 fl (80.0-96.0); PLATELET COUNT, AUTOMATED 323 10^3/uL (150-450); RED BLOOD COUNT 4.87 10^6/uL (4.00-5.40); WHITE BLOOD COUNT 11.1 10^3/uL (4.0-10.0)
[2022-07-28 16:11] LABS: BLOOD UREA NITROGEN 13 MG/DL (9-23); CALCIUM LEVEL 9.6 MG/DL (8.5-10.1); CARBON DIOXIDE LEVEL 25 MMOL/L (20-31); CHLORIDE LEVEL 108 MMOL/L (98-107); CREATININE FOR GFR 0.77 MG/DL (0.55-1.30); GLOMERULAR FILTRATION RATE > 60.0 (>58); GLUCOSE, FASTING 87 MG/DL (60-100); POTASSIUM SERUM 4.3 MMOL/L (3.5-5.1); SODIUM LEVEL 141 MMOL/L (136-145)
== END ==
LOC: M PLALAB 13:43
PROVIDERS: ATTEND Internal Medicine Cardiovascular Disease
DX: I48.0 Paroxysmal atrial fibrillation (principal)

== ENCOUNTER → 2022-11-03 | Outpatient (REF) | payer OTHER | LOC: M SFHCDERM 17:16 | PROVIDERS: ATTEND Dermatology | DX: I78.1 Nevus, non-neoplastic (principal) ==

== ENCOUNTER → 2022-12-19 | Outpatient (REF) | payer OTHER ==
[2022-12-19 22:15] LABS: APPEARANCE, URINE CLOUDY (CLEAR); BACTERIA, URINE AUTO 3+ (NEGATIVE); BILIRUBIN, URINE AUTO NEGATIVE (NEGATIVE); BLOOD, URINE BLOOD 3+ (NEGATIVE); COLOR, URINE YELLOW (YELLOW); GLUCOSE, URINE (UA) AUTO NEGATIVE (NEGATIVE); KETONE, URINE AUTO NEGATIVE (NEGATIVE); LEUKOCYTE ESTERASE, URINE AUTO 3+ (NEGATIVE); MUCUS, URINE SMALL (NEGATIVE); NITRITE, URINE AUTO POSITIVE (NEGATIVE); PROTEIN, URINE AUTO 1+ mg/dL (NEGATIVE); RBC, URINE AUTO TNTC /HPF (0-3); SPECIFIC GRAVITY URINE AUTO 1.019 (1.002-1.035); SQUAMOUS EPITHELIAL CELL UR AU 1 /HPF (0-6); UROBILINOGEN, URINE AUTO 0.2 mg/dL (0.0-2.0); WBC, URINE AUTO TNTC /HPF (0-3)
== END ==
LOC: M LAB REF 21:00
PROVIDERS: ATTEND Physician Assistant Medical
DX: N39.0 Urinary tract infection, site not specified (principal)

== ENCOUNTER → 2023-05-07 | Outpatient (REF) | payer OTHER | LOC: M SFHCWAGY 18:13 | PROVIDERS: ATTEND Specialist | DX: Z12.4 Encounter for screening for malignant neoplasm of cervix (principal) | CPT/HCPCS: 87624; G0123 ==

== ENCOUNTER → 2023-05-09 | Outpatient (CLI) | payer OTHER ==
[2023-05-09 08:46] LABS: FREE T4 1.02 NG/DL (0.89-1.76); THYROID STIMULATING HORMONE 3.79 uIU/ML (0.55-4.78)
== END ==
LOC: M LAB 07:34
PROVIDERS: ATTEND Specialist
DX: L65.9 Nonscarring hair loss, unspecified (principal)

== ENCOUNTER → 2023-08-01 | Outpatient (CLI) | payer OTHER | LOC: M WHC 07:30 | PROVIDERS: ATTEND Specialist | DX: Z12.31 Encounter for screening mammogram for malignant neoplasm of breast (principal) ==

== ENCOUNTER → 2023-08-15 | Outpatient (CLI) | payer OTHER ==
[2023-08-15 12:36] LABS: ALBUMIN 3.3 G/DL (3.2-5.2); ALKALINE PHOSPHATASE 40 U/L (46-116); ALT/SGPT 20 U/L (7.0-40); AST/SGOT 12 U/L (<34); BILIRUBIN,TOTAL 0.8 MG/DL (0.3-1.2); BLOOD UREA NITROGEN 14 MG/DL (9-23); CALCIUM LEVEL 9.2 MG/DL (8.5-10.1); CARBON DIOXIDE LEVEL 28 MMOL/L (20-31); CHLORIDE LEVEL 106 MMOL/L (98-107); CHOLESTEROL LEVEL 177 MG/DL (<200); CHOLESTEROL RISK RATIO 2.82 (<5); CREATININE FOR GFR 0.72 MG/DL (0.55-1.30); GLOMERULAR FILTRATION RATE > 60.0 (>58); GLUCOSE, FASTING 82 MG/DL (60-100); HDL CHOLESTEROL 62.6 MG/DL (>40); LDL CHOLESTEROL 87.4 MG/DL (<100); NON-HDL-C 114.4 MG/DL; POTASSIUM SERUM 4.2 MMOL/L (3.5-5.1); SODIUM LEVEL 140 MMOL/L (136-145); TOTAL PROTEIN 6.1 G/DL (5.7-8.2); TRIGLYCERIDES LEVEL 135 MG/DL (<150)
[2023-08-15 12:37] LABS: BASO # 0.1 10^3/uL (0.0-0.2); BASO % 0.5 % (0.0-1.0); EOS # 0.1 10^3/uL (0.0-0.5); EOS % 1.5 % (0.0-3.0); HEMATOCRIT 42.5 % (36.0-47.0); HEMOGLOBIN 13.7 g/dl (12.0-15.5); LYMPH % 32.5 % (24.0-44.0); MEAN CORPUSCULAR HEMOGLOBIN 30.6 pg (27.0-33.0); MEAN CORPUSCULAR HGB CONC 32.2 g/dl (32.0-36.5); MEAN CORPUSCULAR VOLUME 94.9 fl (80.0-96.0); MONO # 0.4 10^3/uL (0.0-0.8); MONO % 4.5 % (2.0-8.0); NEUTROPHILS # 5.5 10^3/uL (1.5-8.5); NEUTROPHILS % 60.7 % (36.0-66.0); PLATELET COUNT, AUTOMATED 291 10^3/uL (150-450); RED BLOOD COUNT 4.48 10^6/uL (4.00-5.40); WHITE BLOOD COUNT 9.1 10^3/uL (4.0-10.0)
== END ==
LOC: M PLALAB 10:16
PROVIDERS: ATTEND Family Medicine
DX: Z00.00 Encounter for general adult medical examination without abnormal findings (principal)

== ENCOUNTER → 2024-05-22 | Outpatient (REF) | payer OTHER | LOC: M SFHCWAGY 18:04 | PROVIDERS: ATTEND Specialist | DX: Z12.4 Encounter for screening for malignant neoplasm of cervix (principal) ==

== ENCOUNTER → 2024-08-11 | Outpatient (CLI) | payer OTHER | LOC: M WHC 09:49 | PROVIDERS: ATTEND Specialist | DX: Z12.31 Encounter for screening mammogram for malignant neoplasm of breast (principal) ==

== ENCOUNTER → 2024-08-19 | Outpatient (CLI) | payer OTHER ==
[2024-08-19 13:08] LABS: BASO # 0.1 10^3/uL (0.0-0.2); BASO % 0.8 % (0.0-1.0); EOS # 0.2 10^3/uL (0.0-0.5); HEMATOCRIT 41.9 % (36.0-47.0); LYMPH % 43.3 % (24.0-44.0); MEAN CORPUSCULAR HGB CONC 33.4 g/dl (32.0-36.5); MEAN CORPUSCULAR VOLUME 92.9 fl (80.0-96.0); MONO # 0.5 10^3/uL (0.0-0.8); NEUTROPHILS # 4.5 10^3/uL (1.5-8.5); NEUTROPHILS % 48.7 % (36.0-66.0); PLATELET COUNT, AUTOMATED 296 10^3/uL (150-450); RED BLOOD COUNT 4.51 10^6/uL (4.00-5.40); WHITE BLOOD COUNT 9.3 10^3/uL (4.0-10.0)
[2024-08-19 13:11] LABS: ALBUMIN 3.3 G/DL (3.2-5.2); ALKALINE PHOSPHATASE 44 U/L (35-104); ALT/SGPT 25 U/L (7.0-40); AST/SGOT 18 U/L (<34); BILIRUBIN,TOTAL 0.7 MG/DL (0.3-1.2); BLOOD UREA NITROGEN 15 MG/DL (9-23); CALCIUM LEVEL 9.5 MG/DL (8.5-10.1); CARBON DIOXIDE LEVEL 27 MMOL/L (20-31); CHLORIDE LEVEL 107 MMOL/L (98-107); CHOLESTEROL LEVEL 208 MG/DL (<200); CHOLESTEROL RISK RATIO 2.97 (<5); CREATININE FOR GFR 0.73 MG/DL (0.55-1.30); GLOMERULAR FILTRATION RATE > 60.0 (>58); GLUCOSE, FASTING 90 MG/DL (60-100); HDL CHOLESTEROL 69.9 MG/DL (>40); LDL CHOLESTEROL 115.7 MG/DL (<100); NON-HDL-C 138.1 MG/DL; POTASSIUM SERUM 4.2 MMOL/L (3.5-5.1); SODIUM LEVEL 142 MMOL/L (136-145); TOTAL PROTEIN 6.6 G/DL (5.7-8.2); TRIGLYCERIDES LEVEL 112 MG/DL (<150)
== END ==
LOC: M PLALAB 10:50
PROVIDERS: ATTEND Family Medicine
DX: I10 Essential (primary) hypertension (principal)

== ENCOUNTER 2024-08-22 16:35 | Observation (INO) | payer OTHER ==
[~2024-08-22] VITALS: Ht 170.2 cm; Wt 100.4 kg
[2024-08-22] MEDS ORDERED: CVS-161 PO (17:06)
[2024-08-22] MEDS ORDERED: SUPER C PO (17:06)
[2024-08-22] MEDS ORDERED: MULT-90 PO (17:06)
[2024-08-22] MEDS ORDERED: TRI-TAB16 PO (17:06)
[2024-08-22] MEDS ORDERED: LISI10TA22 PO (17:06)
[2024-08-22] MEDS: NS 500 ML IV ONE (17:10)
[2024-08-22] MEDS: METOPROLOL 5 MG/5 ML VIAL IV PRN (17:19)
[2024-08-22 17:41] LABS: BASO # 0.1 10^3/uL (0.0-0.2); BASO % 0.6 % (0.0-1.0); EOS # 0.4 10^3/uL (0.0-0.5); EOS % 3.7 % (0.0-3.0); HEMATOCRIT 43.7 % (36.0-47.0); HEMOGLOBIN 14.5 g/dl (12.0-15.5); LYMPH # 4.9 10^3/uL (1.5-5.0); LYMPH % 42.6 % (24.0-44.0); MEAN CORPUSCULAR HEMOGLOBIN 30.5 pg (27.0-33.0); MEAN CORPUSCULAR HGB CONC 33.2 g/dl (32.0-36.5); MONO # 0.8 10^3/uL (0.0-0.8); MONO % 6.8 % (2.0-8.0); NEUTROPHILS # 5.3 10^3/uL (1.5-8.5); NEUTROPHILS % 46.1 % (36.0-66.0); PLATELET COUNT, AUTOMATED 331 10^3/uL (150-450); RED BLOOD COUNT 4.75 10^6/uL (4.00-5.40); WHITE BLOOD COUNT 11.4 10^3/uL (4.0-10.0)
[2024-08-22] MEDS: AMIODARONE HCL 150 MG in IV 1 EA IV STA ×2 (17:52→20:35)
[2024-08-22 17:55] LABS: ETHYL ALCOHOL (ETHANOL) < 0.003 % (0.000-0.010); LIPASE 29 U/L (12-53)
[2024-08-22 17:57] LABS: ALBUMIN 3.4 G/DL (3.2-5.2); ALKALINE PHOSPHATASE 48 U/L (35-104); ALT/SGPT 31 U/L (7.0-40); AST/SGOT 22 U/L (<34); BILIRUBIN,DIRECT < 0.1 MG/DL (<0.4); BILIRUBIN,TOTAL 0.4 MG/DL (0.3-1.2); BLOOD UREA NITROGEN 15 MG/DL (9-23); CALCIUM LEVEL 9.7 MG/DL (8.5-10.1); CARBON DIOXIDE LEVEL 25 MMOL/L (20-31); CHLORIDE LEVEL 108 MMOL/L (98-107); CREATININE FOR GFR 0.66 MG/DL (0.55-1.30); GLOMERULAR FILTRATION RATE > 60.0 (>58); GLUCOSE, FASTING 104 MG/DL (60-100); POTASSIUM SERUM 3.9 MMOL/L (3.5-5.1); SODIUM LEVEL 144 MMOL/L (136-145)
[2024-08-22 17:59] LABS: THYROID STIMULATING HORMONE 1.501 uIU/ML (0.55-4.78)
[2024-08-22] MEDS: METOPROLOL TART 50 MG TAB PO ONE (18:50)
[2024-08-22 19:50] LABS: AMPHETAMINES LEVEL URINE NEGATIVE (NEGATIVE); BARBITURATES URINE NEGATIVE (NEGATIVE); BENZODIAZEPINES URINE NEGATIVE (NEGATIVE); CANNABINOIDS URINE NEGATIVE (NEGATIVE); COCAINE METABOLITE URINE NEGATIVE (NEGATIVE); METHADONE URINE NEGATIVE (NEGATIVE); OPIATES URINE NEGATIVE (NEGATIVE); PHENCYCLIDINE URINE NEGATIVE (NEGATIVE)
[2024-08-22] MEDS ORDERED: VITA100065 PO (22:14)
[2024-08-22] MEDS ORDERED: HOME MED LIST COMPLETE! XX SCH (22:15)
[2024-08-23 00:25] VITALS: O2SAT 99
[2024-08-23] MEDS: METOPROLOL TART 25 MG TABLET PO ONE (00:53)
[2024-08-23] MEDS: RIVAROXABAN 20MG TAB (XARELTO) PO ONE (00:53)
[2024-08-23] MEDS: ACETAMINOPHEN 325 MG TAB PO ONE (00:53)
[2024-08-23] MEDS ORDERED: MOM 30ML SUSPENSION UDC PO PRN (02:15)
[2024-08-23] MEDS ORDERED: MAALOX 30 ML SUSP *UDC PO PRN (02:15)
[2024-08-23 07:21] LABS: HEMOGLOBIN A1c 5.2 % (4.0-6.0)
[2024-08-23 07:28] LABS: CHOLESTEROL LEVEL 203 MG/DL (<200); CHOLESTEROL RISK RATIO 3.58 (<5); HDL CHOLESTEROL 56.7 MG/DL (>40); LDL CHOLESTEROL 121.5 MG/DL (<100); NON-HDL-C 146.3 MG/DL; PHOSPHORUS LEVEL 3.1 MG/DL (2.5-4.9); TRIGLYCERIDES LEVEL 124 MG/DL (<150)
[2024-08-23 07:30] LABS: FREE T4 1.11 NG/DL (0.89-1.76)
[2024-08-23 07:31] LABS: THYROID STIMULATING HORMONE 3.221 uIU/ML (0.55-4.78)
[2024-08-23] MEDS: DOCUSATE SODIUM 100MG CAPSULE PO SCH (08:18)
[2024-08-23] MEDS ORDERED: METOPROLOL TART 50 MG TAB PO SCH (09:00)
[2024-08-23] MEDS ORDERED: ASPIRIN 81MG ENTERIC TABLET PO SCH (09:00)
[2024-08-23] MEDS ORDERED: dilTIAZem 25MG/5ML VIAL As Ordered ONE (09:17)
[2024-08-23] MEDS: dilTIAZem 25MG/5ML VIAL IV STA (09:48)
[2024-08-23] MEDS ORDERED: XARE20TA PO (09:52)
[2024-08-23] MEDS ORDERED: ISOVUE-370 76% 100ML VIAL As Ordered ONE (10:10)
[2024-08-23 11:36] LABS: ALBUMIN 2.9 G/DL (3.2-5.2); ALKALINE PHOSPHATASE 41 U/L (35-104); ALT/SGPT 26 U/L (7.0-40); AST/SGOT 16 U/L (<34); BILIRUBIN,TOTAL 0.7 MG/DL (0.3-1.2); BLOOD UREA NITROGEN 14 MG/DL (9-23); CARBON DIOXIDE LEVEL 26 MMOL/L (20-31); CHLORIDE LEVEL 110 MMOL/L (98-107); CREATININE FOR GFR 0.66 MG/DL (0.55-1.30); GLOMERULAR FILTRATION RATE > 60.0 (>58); GLUCOSE, FASTING 92 MG/DL (60-100); POTASSIUM SERUM 3.8 MMOL/L (3.5-5.1); SODIUM LEVEL 143 MMOL/L (136-145)
[2024-08-23 11:38] LABS: BASO # 0.1 10^3/uL (0.0-0.2); BASO % 0.8 % (0.0-1.0); EOS # 0.2 10^3/uL (0.0-0.5); EOS % 2.4 % (0.0-3.0); HEMATOCRIT 43.2 % (36.0-47.0); HEMOGLOBIN 14.4 g/dl (12.0-15.5); LYMPH % 32.4 % (24.0-44.0); MEAN CORPUSCULAR HEMOGLOBIN 30.6 pg (27.0-33.0); MEAN CORPUSCULAR HGB CONC 33.3 g/dl (32.0-36.5); MEAN CORPUSCULAR VOLUME 91.7 fl (80.0-96.0); MONO # 0.5 10^3/uL (0.0-0.8); MONO % 5.4 % (2.0-8.0); NEUTROPHILS # 5.4 10^3/uL (1.5-8.5); NEUTROPHILS % 58.8 % (36.0-66.0); PLATELET COUNT, AUTOMATED 311 10^3/uL (150-450); RED BLOOD COUNT 4.71 10^6/uL (4.00-5.40); WHITE BLOOD COUNT 9.3 10^3/uL (4.0-10.0)
[2024-08-23] MEDS: dilTIAZem 30 MG TAB PO SCH (11:38)
[2024-08-23] MEDS: RIVAROXABAN 20MG TAB (XARELTO) PO SCH (17:42)
[2024-08-23] MEDS: ACETAMINOPHEN 325 MG TAB PO PRN (17:43)
[2024-08-24 06:15] LABS: HEMATOCRIT 41.5 % (36.0-47.0); HEMOGLOBIN 13.7 g/dl (12.0-15.5); MEAN CORPUSCULAR HEMOGLOBIN 30.6 pg (27.0-33.0); MEAN CORPUSCULAR VOLUME 92.8 fl (80.0-96.0); PLATELET COUNT, AUTOMATED 279 10^3/uL (150-450); RED BLOOD COUNT 4.47 10^6/uL (4.00-5.40); WHITE BLOOD COUNT 10.5 10^3/uL (4.0-10.0)
[2024-08-24 06:32] LABS: ALBUMIN 2.9 G/DL (3.2-5.2); ALKALINE PHOSPHATASE 41 U/L (35-104); ALT/SGPT 25 U/L (7.0-40); AST/SGOT 15 U/L (<34); BILIRUBIN,TOTAL 0.8 MG/DL (0.3-1.2); BLOOD UREA NITROGEN 15 MG/DL (9-23); CALCIUM LEVEL 8.9 MG/DL (8.5-10.1); CARBON DIOXIDE LEVEL 27 MMOL/L (20-31); CHLORIDE LEVEL 110 MMOL/L (98-107); CREATININE FOR GFR 0.76 MG/DL (0.55-1.30); GLOMERULAR FILTRATION RATE > 60.0 (>58); GLUCOSE, FASTING 92 MG/DL (60-100); MAGNESIUM LEVEL 1.9 MG/DL (1.8-2.4); SODIUM LEVEL 144 MMOL/L (136-145); TOTAL PROTEIN 5.7 G/DL (5.7-8.2)
[2024-08-24 09:29] VITALS: BP 126/76
[2024-08-24] MEDS: METOPROLOL SUCC *XL* 25MG TAB (TopROL *XL*) PO SCH (09:29)
[2024-08-24] MEDS ORDERED: METO1TAB32 PO (11:45)
[2024-08-24 12:02] VITALS: TEMP 97.4
[2024-08-24 12:22] VITALS: BP 133/74; O2SAT 97
== END 2024-08-24 12:37 | disposition home or self-care (01) ==
LOC: M ED 16:35 → M ED INP 16:36 → INTOOBSV 08-23 02:15 → UNDOADMOB 08-23 02:15 → UNDODISOB 08-24 12:37
PROVIDERS: ADMIT Student in an Organized Health Care Education/Training Program; ATTEND Student in an Organized Health Care Education/Training Program
DX: I48.0 Paroxysmal atrial fibrillation (principal); I10 Essential (primary) hypertension; E78.5 Hyperlipidemia, unspecified; Z86.16 Personal history of COVID-19; Z79.899 Other long term (current) drug therapy
CPT/HCPCS: 36415; 71045; 71275; 80048; 80053; 80061; 80076; 80307; 82077; 83036; 83690; 83735; 84100; 84439; 84443; 85025; 85027; 93005; 93041; 93306; 94760; 96365; 96375; 96376; 99285; J0283; Q9967